=== PATIENT | male | born 1930 | race Caucasian/White ===

== ENCOUNTER → 2018-06-23 08:25 | Day surgery (SDC) | payer MEDICARE, BC ==
[~2018-06-23 08:25] MED LIST: Acetaminophen TAB* 325 MG PO PRN; Aspirin 81 mg CHEW TAB* 81 MG TAB.CHEW ONE; Diazepam TAB(*) 5 MG ONE; Heparin 2 UNITS/ML IVPREMIX* 2,000 ML IV ONE; Iodixanol 320 (CONTRAST) 100 ML SDV ONE; Iohexol 350 (CONTRAST) 200 ML MDV IV ONE; Lidocaine 1% INJ* 10 MG/ML 30 ML SDV ONE; Midazolam* 1 MG/ML 10 ML VIAL (10 MG) ONE; NS 0.9% 1000 ML* 1,000 ML IV SCH; fentaNYL* 50 MCG/ML 2 ML VIAL (100 MCG VIAL) ONE
[2018-06-23 14:51] VITALS: BP 152/65
--- NOTE | 2018-06-23 21:04 | CATH ---
CC: Pawel Grissom MD * CARDIAC CATHETERIZATION REPORT: DATE OF PROCEDURE: 06/23/18 - [facility] CATH PROCEDURE: Cardiac catheterization including coronary angiography, saphenous vein graft angiography and internal mammary angiography. INDICATION: Coronary artery disease, angina. HISTORY: The patient is an 88-year-old gentleman with a history of coronary artery disease, history of coronary bypass surgery in 2010. I had seen the patient for followup recently and he was reporting increasing chest pain and shortness of breath with exertion. The patient underwent an exercise Myoview stress test. During this exercise, he did have [address] segment depression. His Myoview images demonstrated lateral wall ischemia, it is different from 2016. Cardiac catheterization was recommended. DESCRIPTION OF PROCEDURE: The patient was brought to the cardiac catheterization lab in a fasting state. Informed consent had been obtained prior to the procedure. All labs were reviewed. The patient was placed supine on the catheterization table. Both femoral areas were cleaned and draped in usual fashion. 1% lidocaine was used for local anesthesia. The left femoral artery was entered by a modified Seldinger technique and a guide-wire was placed , over the guide-wire a 6-South African sheath introducer was placed. The patient underwent coronary angiography using a 6- [place] African JL4 catheter, a 6-South African AR1 catheter, and a 6-South African JOSE catheter. At the end of the procedure, all sheaths and catheters were removed. The patient tolerated the procedure well with no complications. A total of 95 cc of Visipaque dye was used. A total of 5.4 minutes of fluoro time was used. FINDINGS: 1. Left main artery: The left main was short. The left main was heavily calcified. The LAD was occluded at its ostium. The distal left main into the left circumflex artery had an eccentric 95% stenosis. 2. LAD: The LAD was occluded in its ostial portion. 3. Left circumflex artery: The circumflex artery was normal in size. It was a co- dominant vessel, giving off 2 obtuse marginal branches and PDA. The ostial portion of the left circumflex artery was heavily calcified with an eccentric 95% stenosis. The remainder of the vessel was without disease. 4. Right coronary artery: The RCA was a small co-dominant vessel. It was occluded in its mid portion. 5. Saphenous vein graft to the PDA: Saphenous vein graft was open and patent. The anastomoses to the PDA was normal. The PDA itself was without disease. 6. Saphenous vein graft to OM1 was flush occluded at the aorta. 7. MINER to the LAD. The MINER to the LAD was open and patent. The anastomosis to the LAD was stable. There was retrograde filling to the ostium of the LAD without evidence of stenosis. IMPRESSION: 1. Ostial stenosis of the left circumflex artery with a 95% stenosis and heavy calcification. The remainder of the vessel was without disease. 2. Saphenous vein graft to the RCA and MINER to the LAD are open and patent. 3. Saphenous vein graft to OM1 is occluded. RECOMMENDATION: The patient has no rest symptoms, his symptoms were all with exertion. The patient is unable to take beta-blockers because of his resting bradycardia. The lesion to the left circumflex artery is a high complex lesion with heavy calcification. At this point, recommendation is to observe symptoms and maximize medical therapy. I will see the patient and followup. The patient may benefit from angioplasty and stenting that was proximal left circumflex artery, which would likely be best accomplished with Rotablator therapy. [id number]/CPS #: [id number] [facility]
== END | disposition home or self-care (01) ==
LOC: CHICATH 08:25
PROVIDERS: ATTEND Specialist
DX: I25.10 Atherosclerotic heart disease of native coronary artery without angina pectoris (principal); I25.84 Coronary atherosclerosis due to calcified coronary lesion; R07.9 Chest pain, unspecified; R94.31 Abnormal electrocardiogram [ECG] [EKG]; I45.10 Unspecified right bundle-branch block; Z95.1 Presence of aortocoronary bypass graft; Z79.01 Long term (current) use of anticoagulants
CPT/HCPCS: 93455; 99156; 99157; A9270-GY; C1760; C1887; J1644; J2250; J3010

== ENCOUNTER 2018-12-20 15:16 | Emergency (ER) | payer MEDICARE, BC ==
[2018-12-20 15:29] VITALS: BP 172/65
--- NOTE | 2018-12-20 15:39 | UC ---
Abdominal Pain Male HPI - HPI Summary HPI Summary: acute abdomen pain and vomiting sudden onset for the past 2-4 hours - History of Current Complaint Chief Complaint: UCAbdominalPain Stated Complaint: ABDOMINAL PAIN, AND VOMITING Time Seen by Provider: 12/20/18 15:22 Hx Obtained From: Patient Onset/Duration: Sudden Onset, Lasting Hours Timing: Constant Pain Intensity: 6 Pain Scale Used: 0-10 Numeric Location: Diffuse Radiates: No Character: Cramping Aggravating Factor(s): Nothing Alleviating Factor(s): Nothing Associated Signs And Symptoms: Positive: Decreased Appetite, Nausea, Vomiting - Allergies/Home Medications Allergies/Adverse Reactions: Allergies Allergy/AdvReac Type Severity Reaction Status Date / Time No Known Allergies Allergy Verified 12/20/18 15:29 PMH/Surg Hx/FS Hx/Imm Hx Previously Healthy: No Endocrine History: Dyslipidemia Cardiovascular History: Hypertension, Other Other Cardiovascular History: cabg Other History Of: Negative For: Anticoagulant Therapy - Surgical History Surgical History: Yes Surgery Procedure, Year, and Place: TRIPLE BYPASS, 2010, [facility]. [facility] , KIDNEY and cardiac STENT - Family History Known Family History: Positive: Unknown - Social History Occupation: Retired Lives: With Family Alcohol Use: None Alcohol Amount: glass of wine 3x's week with dinner Substance Use Type: None Smoking Status (MU): Never Smoked Tobacco Have You Smoked in the Last Year: No - Immunization History Most Recent Influenza Vaccination: fall 2014 Most Recent Tetanus Shot: w/i 10 years Most Recent Pneumonia Vaccination: 11/16/2014 Review of Systems All Other Systems Reviewed And Are Negative: Yes Constitutional: Positive: Fatigue Skin: Positive: Negative Eyes: Positive: Negative ENT: Positive: Negative Respiratory: Positive: Negative Cardiovascular: Positive: Negative Gastrointestinal: Positive: Abdominal Pain, Nausea Genitourinary: Positive: Negative Motor: Positive: Negative Neurovascular: Positive: Negative Musculoskeletal: Positive: Negative Neurological: Positive: Negative Psychological: Positive: Negative Is Patient Immunocompromised?: No Physical Exam Triage Information Reviewed: Yes Appearance: Well-Nourished, Ill-Appearing - mild, Pain Distress - mild Vital Signs: Initial Vital Signs Temp 100.0 F 12/20/18 15:22 Pulse 74 12/20/18 15:22 Resp 16 12/20/18 15:22 BP 172/65 12/20/18 15:22 Pulse Ox 92 07/21/19 15:22 Vital Signs Reviewed: Yes Eye Exam: Normal Eyes: Positive: Conjunctiva Clear ENT Exam: Normal ENT: Positive: Normal ENT inspection, Hearing grossly normal. Negative: Trismus , Muffled voice, Hoarse voice Dental Exam: Normal Neck exam: Normal Neck: Positive: Supple, Nontender, No Lymphadenopathy Respiratory Exam: Normal Respiratory: Positive: Chest non-tender, Lungs clear, Normal breath sounds, No respiratory distress, No accessory muscle use Cardiovascular Exam: Normal Cardiovascular: Positive: RRR, No Murmur, Pulses Normal, Brisk Capillary Refill Abdomen Description: Positive: No Organomegaly, Soft, Other: - periumbillical diffuse tenderness. Negative: Nontender, CVA Tenderness (R), CVA Tenderness (L) , Guarding Bowel Sounds: Positive: Present Musculoskeletal Exam: Normal Musculoskeletal: Positive: Strength Intact, ROM Intact, No Edema Neurological Exam: Normal Neurological: Positive: Alert, Muscle Tone Normal Psychological Exam: Normal Skin Exam: Normal Abd Pain Male Course/Dx - Course Course Of Treatment: NPO, iv, to ED by EMS - Differential Dx/Clinical Impression Provider Diagnosis: Acute abdominal pain - Physician Notification/Consults Time Discussed With Above Provider: 15:40 - Mora Eleazar Discharge - Sign-Out/Discharge Documenting (check all that apply): Patient Departure All imaging exams completed and their final reports reviewed: No Studies - Discharge Plan Condition: Fair Disposition: TRANS HIGHER LVL OF CARE FAC Referrals: No Primary Care Phys,NOPCP [Primary Care Provider] - - Billing Disposition and Condition Condition: FAIR Disposition: Trans Higher Lvl of Care Fac - Attestation Statements Provider Attestation: Per institutional requirements, I have reviewed the chart, however, I was not consulted specifically or made aware of this patient by the midlevel provider. I did not personally evaluate, interact with , or disposition this patient.
== END 2018-12-20 15:58 | disposition short-term general hospital (02) ==
LOC: UCEAST 15:16
DX: R10.9 Unspecified abdominal pain (principal); R11.2 Nausea with vomiting, unspecified; E78.5 Hyperlipidemia, unspecified; I10 Essential (primary) hypertension; Z95.1 Presence of aortocoronary bypass graft
CPT/HCPCS: 81002; 99213; G0463

== ENCOUNTER 2018-12-20 16:22 | Inpatient (IN) | payer MEDICARE, BC ==
[2018-12-20] MEDS ORDERED: NS 0.9% 1000 ML** 1,000 ML IV ONE (17:39)
[2018-12-20] MEDS ORDERED: Morphine 4 MG/ML VIAL (1 ml) 4 MG/ML VIAL IV ONE (17:39)
[2018-12-20] MEDS ORDERED: Ondansetron INJ* 2 MG/ML VIAL IV ONE (17:39)
[2018-12-20 18:06] LABS: ABS Lymphocytes 0.4 10^3/ul (1.0-4.8); ABS Monocytes 0.7 10^3/ul (0-0.8); Eosinophil % 0.2 %; Hematocrit 38 % (42-52); Hemoglobin 12.8 g/dL (14.0-18.0); Lymphocyte % 3.8 %; Mean Corpuscular HGB Conc 33 g/dL (31-36); Mean Corpuscular Hemoglobin 31 pg (27-31); Mean Corpuscular Volume 93 fL (80-94); Mean Platelet Volume 10.5 fL (7.4-10.4); Platelet Count 108 10^3/uL (150-450); Red Blood Count 4.11 10^6 /uL (4.18-5.48); Red Cell Distribution Width 13 % (10-15); White Blood Count 11.2 10^3/uL (3.5-10.8)
--- NOTE | 2018-12-20 18:08 | ED ---
Abdominal Pain/Male - HPI Summary HPI Summary: This patient is an 88 year old MF sent to ED from via EMS with a chief complaint of R/L upper abdominal pain since 0900 this morning. The CC is described as throbbing. Last bowel movement was 1300 today. He has not been passing gas. The patient rates the pain 6/10 in severity. Symptoms aggravated by nothing. Symptoms alleviated by nothing. Patient reports vomiting x4. Patient denies fever, CP, SOB. - History of Current Complaint Chief Complaint: EDAbdPain Stated Complaint: "ABDOMINAL PAIN PER EMS COMING FROM [facility]" Time Seen by Provider: 12/20/18 16:55 Hx Obtained From: Patient Onset/Duration: Gradual Onset, Lasting Hours - Since 0900 this morning, Still Present, Worse Since Timing: Constant Severity Initially: Moderate Severity Currently: Moderate Pain Intensity: 6 Pain Scale Used: 0-10 Numeric Location: Discrete At: RUQ, Discrete At: RLQ Character: Other: - Throbbing Aggravating Factor(s): Nothing Alleviating Factor(s): Nothing Associated Signs And Symptoms: Positive: Negative - SOB, Vomiting. Negative: Fever, Chest Pain - Allergies/Home Medications Allergies/Adverse Reactions: Allergies Allergy/AdvReac Type Severity Reaction Status Date / Time No Known Allergies Allergy Verified 12/20/18 15:29 PMH/Surg Hx/FS Hx/Imm Hx Endocrine/Hematology History: Denies: Hx Anticoagulant Therapy, Hx Blood Disorders, Hx Blood Transfusions, Hx Bone Marrow Disease, Hx Diabetes, Hx Systemic Lupus Erythematosus, Hx Sickle Cell Disease, Hx Thyroid Disease, Hx Anemia, Hx Unexplained Bleeding, Other Endocrine/Hematological Disorders Cardiovascular History: Reports: Hx Coronary Artery Disease, Hx Hypertension, Other Cardiovascular Problems/Disorders - CAD Denies: Hx Aneurysm, Hx Angina, Hx Angioplasty, Hx Auto Implanted Cardiovert Defib, Hx Cardiac Arrest, Hx Cardiomegaly, Hx Congenital Heart Disease, Hx Congestive Heart Failure, Hx Deep Vein Thrombosis, Hx Embolism, Hx Hypercholesterolemia, Hx Hypotension, Hx Pacemaker/ICD, Hx Peripheral Vascular Disease, Hx Rheumatic Fever, Hx Syncope, Hx Valvular Heart Disease Respiratory History: Reports: Other Respiratory Problems/Disorders - LOW O2 Denies: Hx Asthma, Hx Chronic Bronchitis, Hx Chronic Obstructive Pulmonary Disease (COPD), Hx Cystic Fibrosis, Hx Lung Cancer, Hx Pleural Effusion, Hx Pneumonia, Hx Pulmonary Edema, Hx Pulmonary Embolism, Hx Seasonal Allergies, Hx Sleep Apnea GI History: Denies: Hx Hiatal Hernia, Hx Irritable Bowel, Hx Jaundice, Hx Obstructive Bowel, Hx Ileostomy, Hx Pyloric Stenosis, Hx Ulcer, Other GI Disorders History: Denies: Hx Acute Renal Failure, Hx Benign Prostatic Hyperplasia, Hx Chronic Renal Failure, Hx Dialysis, Hx Kidney Infection, Hx Kidney Stones, Other Problems/Disorders Musculoskeletal History: Reports: Hx Arthritis - KNEES, HANDS Denies: Hx Back Problems, Hx Bursitis, Hx Congenital Bone Abnormalities, Hx Fibromyalgia, Hx Gout, Hx Orthopedic Injury, Hx Osteoporosis, Hx Scoliosis, Hx Tendonitis, Other Musculoskeletal History Sensory History: Reports: Hx Contacts or Glasses, Hx Vision Problem, Hx Hearing Aid - not with him, Hx Hearing Problem Denies: Hx Cataracts, Hx Eye Injury, Hx Eye Prosthesis, Hx Glaucoma, Hx Legally Blind, Hx Macular Degeneration, Hx Deafness, Other Sensory Impairments Opthamlomology History: Reports: Hx Contacts or Glasses, Hx Vision Problem Denies: Hx Cataracts, Hx Eye Injury, Hx Eye Prosthesis, Hx Glaucoma, Hx Legally Blind, Hx Macular Degeneration, Other Sensory Impairments Neurological History: Denies: Hx Dementia, Hx Developmental Delay, Hx Headaches, Hx Migraine, Hx Nerve Disease, Hx Seizures, Hx Spinal Cord Injury, Hx Transient Ischemic Attacks (TIA), Other Neuro Impairments/Disorders Psychiatric History: Denies: Hx Anxiety, Hx Attention Deficit Hyperactivity Disorder, Hx Eating Disorder, Hx Depression, Hx Panic Disorder, Hx Post Traumatic Stress Disorder, Hx Inpatient Treatment, Hx Community Mental Health Tx, Hx Schizophrenia, Hx Bipolar Disorder, Hx Suicide Attempt, Hx of Violent Episodes Against Others, Hx Substance Abuse, Other Psychiatric Issues/Disorders - Cancer History Cancer Type, Location and Year: melanoma cheek and leg Hx Chemotherapy: No Hx Radiation Therapy: No Hx Palliative Cancer Treatment: No - Surgical History Surgery Procedure, Year, and Place: TRIPLE BYPASS, 2010, [facility] , KIDNEY and cardiac STENT Hx Anesthesia Reactions: No Infectious Disease History: No Infectious Disease History: Denies: Hx Clostridium Difficile, Hx Hepatitis, Hx Human Immunodeficiency Virus (HIV), Hx of Known/Suspected MRSA, Hx Shingles, Hx Tuberculosis, Hx Known/ Suspected VRE, Hx Known/Suspected VRSA, History Other Infectious Disease, Traveled Outside the [place] in Last 30 Days - Family History Known Family History: Positive: Non-Contributory - Social History Alcohol Use: None Alcohol Amount: glass of wine 3x's week with dinner Hx Substance Use: No Substance Use Type: Reports: None Hx Tobacco Use: No Smoking Status (MU): Never Smoked Tobacco Have You Smoked in the Last Year: No Review of Systems Negative: Fever Negative: Chest Pain Negative: Shortness Of Breath Positive: Abdominal Pain, Vomiting All Other Systems Reviewed And Are Negative: Yes Physical Exam - Summary Physical Exam Summary: GENERAL: Patient is a well-developed and nourished M who is lying comfortable in the stretcher. Patient is not in any acute respiratory distress. HEAD AND FACE: Normocephalic EYES: PERRLA, EOMI x 2. EARS: Hearing grossly intact. MOUTH: Oropharynx within normal limits. NECK: Supple, trachea is midline, no adenopathy, no JVD, no carotid bruit. CHEST: Symmetric, no tenderness at palpation LUNGS: Clear to auscultation bilaterally. No wheezing or crackles. CVS: Regular rate and rhythm, S1 and S2 present, no murmurs or gallops appreciated. ABDOMEN: Soft, non-tender. Bowel sounds are normal. No abnormal abdominal pulsations. EXTREMITIES: Full ROM in all major joints, no edema, no cyanosis or clubbing. NEURO: Alert and oriented x 3. No acute neurological deficits. Speech is normal and follows commands. SKIN: Dry and warm Triage Information Reviewed: Yes Vital Signs On Initial Exam: Initial Vitals Temp Pulse Resp BP Pulse Ox 98.5 F 69 18 180/68 92 12/20/18 16:30 12/20/18 16:30 12/20/18 16:30 12/20/18 16:30 12/20/18 16:30 Vital Signs Reviewed: Yes Diagnostics - Vital Signs Vital Signs Temp Pulse Resp BP Pulse Ox 12/20/18 17:52 20 12/20/18 16:30 98.5 F 68 21 180/68 91 - Laboratory Result Diagrams: 12/21/18 04:41 12/21/18 04:41 Lab Statement: Any lab studies that have been ordered have been reviewed, and results considered in the medical decision making process. - CT A/P CT Interpretation Completed By: Radiologist Summary of CT Findings: 1. Findings of acute cholecystitis. 2. Bosniak type I renal cysts. No followup indicated. 3. Distal colonic diverticulosis. 4. Severe prostatomegaly. Dr. Hatfield has reviewed this radiology report. - EKG 175 Cardiac Rate: NL - 64 BPM EKG Rhythm: Sinus Rhythm Ectopy: PACs EKG Comparison: No Significant Change - Similar to EKG 05/2016 Summary of EKG Findings: NSR 64 BPM, PACs, RBBB, similar to EKG done in 05/2016. 1810 Cardiac Rate: NL - 68 BPM EKG Rhythm: Sinus Rhythm EKG Comparison: Other - Now has ST depression compared to EKG taken earlier today, but these are present in an EKG taken 05/18/19. Summary of EKG Findings: NSR at 68 BPM, RBBB, ST depressions in lateral leads, PACs. The ST depressions are noted in an EKG taken 05/18/2016. Re-Evaluation - Re-Evaluation First Eval Re-Evaluation Time: 20:17 Comment: Discussed results with patient. Patient will be admitted to [facility]. Patient udnerstands and agrees with this plan. Abdominal Pain Male Course/Dx - Course Course Of Treatment: This patient is an 88 year old MF sent to ED from via EMS with a chief complaint of R/L upper abdominal pain since 0900 this morning. EKG taken 1750 revealed NSR 64 BPM, PACs, RBBB, similar to EKG done in 05/2016. EKG at 181 revealed NSR at 68 BPM, RBBB, ST depressions in lateral leads.NSR at 68 BPM, RBBB, ST depressions in lateral leads, PACs. The ST depressions are noted in an EKG taken 05/18/2016. In the ED course, patient received morphine, fluids, and Zofran and Zosyn bag. Blood work obtained. CT A/P revealed 1. Findings of acute cholecystitis. 2. Bosniak type I renal cysts. No followup indicated. 3. Distal colonic diverticulosis. 4. Severe prostatomegaly. Discussed patient case with Dr. Nayana Mendenhall, surgeon, who stated the patient should be admitted to [facility] before surgery for the cholecystitis. At 2029, discussed patient case with Dr. Vega, who accepted patient for admission to [facility]. I discussed results with patient. The patient agrees with this plan. Patient will be admitted with dx of cholecystitis. - Diagnoses Provider Diagnoses: Cholecystitis - Provider Notifications Discussed Care Of Patient With: Nayana Mendenhall Time Discussed With Above Provider: 20:27 Instructed by Provider To: Other - Discussed patient case with Dr. Nayana Mendenhall, surgeon, who stated the patient should be admitted to [facility] before surgery for the cholecystitis. At 2030, discussed patient case with Dr. Vega, who accepted patient for admission to [facility]. Discharge - Sign-Out/Discharge Documenting (check all that apply): Patient Departure - Admit Patient Received Moderate/Deep Sedation with Procedure: No - Discharge Plan Condition: Stable Disposition: ADMITTED TO [facility] - Billing Disposition and Condition Condition: STABLE Disposition: Admitted to [facility] - Attestation Statements Document Initiated by Scribe: Yes Documenting Scribe: Hank Pearson Provider For Whom Scribe is Documenting (Include Credential): Mark Hatifeld MD Scribe Attestation: IHank, scribed for Mark Hatfield MD on 12/22/18 at 0758. Scribe Documentation Reviewed: Yes Provider Attestation: The documentation as recorded by the moeibeHank accurately reflects the service I personally performed and the decisions made by me, Mark Hatfield MD Status of Scribe Document: Viewed
[2018-12-20 18:15] LABS: Activated Partial Thrombo Time 29.7 seconds (26.0-38.0); INR 1.49 (0.82-1.09)
[2018-12-20 18:25] LABS: Albumin 3.5 g/dL (3.2-5.2); Albumin/Globulin Ratio 1.1 (1-3); C Reactive Protein 197.66 mg/L (<8.01); Calcium 9.1 mg/dL (8.6-10.3); EGFR African American 60.4 (>60); EGFR Non-African American 49.9 (>60); Globulin 3.2 g/dL (2-4); Magnesium 2.1 mg/dL (1.9-2.7); Total Bilirubin 0.9 mg/dL (0.2-1.0); Total Protein 6.7 g/dL (6.4-8.9)
[2018-12-20 18:26] LABS: Troponin I 0.01 ng/mL (<0.04)
[2018-12-20] MEDS ORDERED: Iodixanol* (CONTRAST) 320 MG/ML 100 ML SDV IV ONE (18:30)
[2018-12-20] MEDS ORDERED: Piperacillin/Tazobac ADVAN(*) 3.375 GM in NS 0.9% 100 ML* 100 ML IVPB ONE (20:34)
[2018-12-20 20:55] LABS: Urine Appearance Clear; Urine Bacteria Absent (Absent); Urine Bilirubin Negative (Negative); Urine Blood Negative (Negative); Urine Color Yellow; Urine Glucose Negative (Negative); Urine Ketones 1+ (Negative); Urine Nitrite Negative (Negative); Urine Protein 1+(30 mg/dL) (Negative); Urine Red Blood Cell 2+(6-10/hpf) (Absent); Urine Specific Gravity 1.042 (1.010-1.030); Urine Squamous Epithelial Cell Present (Absent); Urine Urobilinogen Negative (Negative); Urine White Blood Cell Trace(0-5/hpf) (Absent)
--- NOTE | 2018-12-20 21:23 | HP ---
History of Present Illness - History of Present Illness Reason for Visit: Vomiting and abdominal pain History of Present Illness: Mr. Whitlock is an 88-year-old gentleman with CAD s/p CABG/stent, here due to vomiting and abdominal pain. Patient stated he started having vomiting 1PM after he had hamburger. Total 4 times of vomiting didn't notice any blood, but vomiting just had the hamburger which was red as it was medium rare. This vomiting was accompanied by abdominal discomfort and he couldn't rest so went to urgent care who sent him to the ER. Discomfort felt like someone punched him it was localized to the bilateral upper abdomen and was constant without any alleviating or aggravating factor. No fever. No diarrhea or constipation. Had two BM today which were normal. No chest pain, no shortness of breath no palpitation. PAST MEDICAL HISTORY: Hypertension Coronary artery disease s/p CABG and stent Hyperlipidemia History of skin cancer. Atrial Fibrillation on eliquis. Uses Hearing Aid - currently not with him Gout had an attack last Friday PAST SURGICAL HISTORY: CABG triple vessel 2011 at [facility] Cardiac stent Kidney stent unsure if it was urinary or vascular stent done at [place] Melanoma excision Tonsillectomy Right Knee replacement FAMILY HISTORY: Non-contributory at his age. SOCIAL HISTORY: He lives with his . He does not smoke or use drugs. Drinks occasional alcohol. Allergies Allergy/AdvReac Type Severity Reaction Status Date / Time No Known Allergies Allergy Verified 12/20/18 15:29 Review of Systems - Measurements Intake and Output: Intake and Output Last 24 Hours 12/18/18 12/19/18 12/20/18 12/21/18 06:59 06:59 06:59 06:59 Weight 166 lb - Review of Systems Constitutional Symptoms: Negative: Fever Eyes: Negative: Change in Vision Pulmonary: Negative: Cough, Sputum, Shortness of Breath Cardiology: Negative: Chest Pain, Shortness of Breath Gastroenterology: Positive: Abdominal Pain, Nausea, Vomiting Objective Vital Signs - 8 hr 12/20/18 12/20/18 12/20/18 16:30 17:00 17:30 Temperature 98.5 F Pulse Rate 68 72 70 Respiratory 21 27 20 Rate Blood Pressure 180/68 156/57 172/62 (mmHg) O2 Sat by Pulse 91 89 91 Oximetry 12/20/18 12/20/18 12/20/18 17:52 18:00 18:17 Temperature Pulse Rate 74 65 Respiratory 20 23 20 Rate Blood Pressure 171/55 (mmHg) O2 Sat by Pulse 82 98 Oximetry 12/20/18 12/20/18 12/20/18 18:30 19:00 19:27 Temperature Pulse Rate 68 76 72 Respiratory 22 25 22 Rate Blood Pressure 169/67 155/66 (mmHg) O2 Sat by Pulse 98 98 98 Oximetry 12/20/18 12/20/18 19:30 20:00 Temperature Pulse Rate 75 74 Respiratory 22 22 Rate Blood Pressure 185/61 172/59 (mmHg) O2 Sat by Pulse 98 98 Oximetry Oxygen Devices in Use Now: Nasal Cannula - on 1LNC Eyes: No Scleral Icterus, PERRLA Ears/Nose/Mouth/Throat: NL Teeth, Lips, Gums, Clear Oropharnyx, Mucous Membranes Moist Neck: NL Appearance and Movements; NL JVP, Trachea Midline Respiratory: Clear to Auscultation Cardiovascular: NL Sounds; No Murmurs; No JVD, RRR Abdominal: - - Abdomen is soft. Had morphine a while back so his tenderness is very minimal at this point. Bowel sounds in place. Couldn't appreciate any watson's sign. Result Diagrams: 12/20/18 17:56 12/20/18 17:56 Diagnostic Imaging: CT Abdomen Pelvis IMPRESSION: 1. Findings of acute cholecystitis. 2. Bosniak type I renal cysts. No followup indicated. 3. Distal colonic diverticulosis. 4. Severe prostatomegaly. EKG Data: EKG shows sinus at 68bpm, RBBB with T-wave inversions. Compared to old EKG from 2016 no significant change. Assess/Plan/Problems-Billing Assessment: 88yoM with PMHx of CAD s/p CABG here due to vomiting and abdominal pain likely due to acute cholecystitis. - Patient Problems (1) Acute cholecystitis Current Visit: Yes Status: Acute Code(s): K81.0 - ACUTE CHOLECYSTITIS SNOMED Code(s): 53829408 Comment: Started on IVF Zosyn IV. Surgeon consulted by ER will see him in AM. Continue NPO. Analgesics/Anti-emetics. Consider ECHO in AM for checking on cardiac status. (2) History of atrial fibrillation Current Visit: Yes Status: Acute Code(s): Z86.79 - PERSONAL HISTORY OF OTHER DISEASES OF THE CIRCULATORY SYSTEM SNOMED Code(s): 714254779 Comment: Not in A. Fib at this time. Possible surgery so will hold aspirin and eliquis for now. Monitor of tele. Once decision is made by surgeon regarding cholecystectomy consider restarting eliquis. (3) Hypoxemia Current Visit: Yes Status: Acute Code(s): R09.02 - HYPOXEMIA SNOMED Code(s ): 696554653 Comment: Likely underlying FANNY as only happens when he sleeps. Monitor pulse ox and nasal cannula O2. (4) CKD (chronic kidney disease) stage 3, GFR 30-59 ml/min Current Visit: Yes Status: Acute Code(s): N18.3 - CHRONIC KIDNEY DISEASE, STAGE 3 (MODERATE) SNOMED Code(s): 883375589 Comment: Creatinine similar to previous. Monitor creatinine. (5) CAD (coronary artery disease) Current Visit: No Status: Chronic Priority: Medium Code(s): I25.10 - ATHSCL HEART DISEASE OF [place] CORONARY ARTERY W/O ANG PCTRS SNOMED Code(s): 24664351 Comment: Stable. Hold Aspirin, statin given acute chitra. (6) Dyslipidemia Current Visit: No Status: Chronic Priority: Medium Code(s): E78.5 - HYPERLIPIDEMIA, UNSPECIFIED SNOMED Code(s): 176995529 Comment: Hold Statin for now. (7) HTN (hypertension) Current Visit: No Status: Chronic Priority: Medium Code(s): I10 - ESSENTIAL (PRIMARY) HYPERTENSION SNOMED Code(s): 50698915 Comment: Normotensive. Continue ramipril. (8) Full code status Current Visit: No Status: Acute Priority: High Code(s): Z78.9 - OTHER SPECIFIED HEALTH STATUS SNOMED Code(s): 651182577 Comment: Discussed code status omarl wants full code. is the HCP in case patient unable to do any decisions. (9) DVT prophylaxis Current Visit: No Status: Acute Priority: Medium Code(s): IAV3162 - SNOMED Code(s): 578348597 Comment: SCDs for now. Once decision is made by surgeon regarding cholecystectomy consider restarting eliquis.
[2018-12-20] MEDS ORDERED: Morphine INJ* 2 MG/ML 1 ML SYRINGE (TWO MG - NEW SYRINGE VERSION) IV PRN (22:18)
[2018-12-20] MEDS ORDERED: Zolpidem TAB* 5 MG PO PRN (22:18)
[2018-12-20] MEDS ORDERED: Zosyn per Pharmacy* NOTE FOLLOW UP PRN (23:36)
[2018-12-21] MEDS: NS 0.9% 1000 ML** 1,000 ML IV SCH ×2 (00:47→17:04)
[2018-12-21 00:55] LABS: Troponin I 0.06 ng/mL (<0.04)
[2018-12-21] MEDS ORDERED: Acetaminophen TAB* 325 MG PO PRN (01:12)
[2018-12-21] MEDS: ZOSYN 3.375 GM Q8H per EXTENDED INFUSION IVPB SCH ×6 (02:09→18:01)
[2018-12-21 05:11] LABS: ABS Lymphocytes 0.4 10^3/ul (1.0-4.8); ABS Monocytes 1.3 10^3/ul (0-0.8); ABS Neutrophils 14.1 10^3/ul (1.5-7.7); Hematocrit 40 % (42-52); Hemoglobin 13.7 g/dL (14.0-18.0); Lymphocyte % 2.7 %; Mean Corpuscular HGB Conc 34 g/dL (31-36); Mean Corpuscular Hemoglobin 32 pg (27-31); Mean Corpuscular Volume 93 fL (80-94); Mean Platelet Volume 10.1 fL (7.4-10.4); Platelet Count 117 10^3/uL (150-450); Red Blood Count 4.33 10^6 /uL (4.18-5.48); Red Cell Distribution Width 13 % (10-15); White Blood Count 15.8 10^3/uL (3.5-10.8)
[2018-12-21 05:29] LABS: BUN/Creatinine Ratio 19.4 (8-20); Calcium 8.9 mg/dL (8.6-10.3); EGFR African American 60.9 (>60); EGFR Non-African American 50.3 (>60); Globulin 3.1 g/dL (2-4); Total Bilirubin 1.7 mg/dL (0.2-1.0); Total Protein 6.1 g/dL (6.4-8.9)
[2018-12-21 05:40] LABS: Troponin I 0.08 ng/mL (<0.04)
[2018-12-21 08:57] LABS: Troponin I 0.08 ng/mL (<0.04)
[2018-12-21] MEDS: Ramipril CAP* 5 MG PO SCH (11:10)
[2018-12-21] MEDS: Multivitamins/Minerals TAB PO SCH (11:10)
[2018-12-21] MEDS: Isosorbide Mononitrate ER TAB* 30 MG PO SCH ×2 (11:10→20:44)
--- NOTE | 2018-12-21 12:44 | CONS ---
CONSULTATION REPORT: DATE OF CONSULTATION: 12/21/18 SERVICE: General Surgery. ATTENDING SURGEON: Nayana Mendenhall MD. REASON FOR CONSULTATION: Abdominal pain and acute cholecystitis. HISTORY OF PRESENT ILLNESS: Mr. Whitlock is a very pleasant 88-year-old gentleman with a history of coronary artery disease, status post CABG and stents, atrial fibrillation, on Eliquis, hypertension, and hyperlipidemia, who presented to the emergency room with complaints of 1-day of emesis and right upper quadrant abdominal pain after eating a hamburger. He says that this is his first time ever having this type of abdominal pain. Given that the pain progressed, he came to the emergency room where he was found on CT scan to have findings consistent with acute cholecystitis. He was therefore admitted to the medical service yesterday. Today, the patient says that his pain has improved. He had more severe right upper quadrant pain yesterday; however, he did have a fever overnight. Of note, he last took his Eliquis Friday morning at approximately 9 a.m. PAST MEDICAL HISTORY: 1. Hypertension. 2. Coronary artery disease. 3. Hyperlipidemia. 4. Atrial fibrillation. PAST SURGICAL HISTORY: 1. CABG. 2. Cardiac stents. 3. An abdominal stent that he is not sure if it was a urinary stent or not. 4. Tonsillectomy. 5. Right knee replacement. 6. Melanoma excision. MEDICATIONS: 1. Isosorbide mononitrate. 2. Multivitamins. 3. Ramipril. 4. Zolpidem as needed for insomnia. 5. Eliquis. ALLERGIES: No known drug allergies. FAMILY HISTORY: Noncontributory. SOCIAL HISTORY: The patient is a nonsmoker. Lives at home with his . He is very active. He goes to the [employer] 3 times a week and gardens regularly. REVIEW OF SYSTEMS: Negative, except for fever, abdominal pain, and emesis. PHYSICAL EXAM: Vital Signs: T-max is 101 at 2:58 a.m., T-current is 98.9, pulse is 85, respiratory rate is 20, O2 sat is 95% O2 on room air, blood pressure is 139/61. General: He is a well-appearing elderly male, lying comfortably in bed, in no apparent distress, conversing easily. HEENT: Normocephalic, atraumatic. Cardiovascular: Regular rate and rhythm. Respiratory: Clear to auscultation bilaterally. Abdomen: Soft, with focal tenderness in the right upper quadrant, nontender at the other remaining quadrants. Extremities: No edema. DIAGNOSTIC STUDIES/LAB DATA: Labs from 12/21/18, white blood cell count 15.8, hemoglobin 13.7, hematocrit 40, platelets are 117. Sodium is 137, potassium is 5, chloride is 105, CO2 is 24. Creatinine is 1.34. Glucose is 125. Total bilirubin is 1.7. AST is 38, ALT is 41, alkaline phosphatase is 228. Troponin is 0.08. CT abdomen and pelvis on 12/20/18, shows findings of acute cholecystitis, distal colonic diverticulosis, severe prostatomegaly. The gallbladder is distended with multiple calcified, gas-containing gallstones, subtle pericholecystic fluid, and gallbladder wall thickening. ASSESSMENT AND PLAN: Mr. Whitlock is an 88-year-old gentleman with a history of coronary artery disease, hypertension, atrial fibrillation, on Eliquis, who presents with right upper quadrant abdominal pain for 1 day and findings consistent with acute cholecystitis. He last took an Eliquis yesterday morning at 9 a.m and is only mildly tender. Although he had a fever overnight and his white count has increased slightly, we will plan to take him to the OR tomorrow for a laparoscopic cholecystectomy to diminish the risk of bleeding. Today, he should continue to be NPO and continue antibiotics. His troponins were slightly elevated. His rotary screen printing machine operator is Dr. Phan and a consult will be requested for cardiac risk stratification optimization. I explained to him and his that the surgery would be a laparoscopic cholecystectomy and I explained the risks, benefits, and alternatives to the procedure and they wished to proceed. The risks includes, but not limited to bleeding, infection, injury to nearby structures including the intestine, stomach, injury to common bile duct, which may require reoperation or further procedures in the future. The surgery will be tomorrow morning with Dr. Grimes. [id number]/[facility] #: [id number] MTDPrasad
[2018-12-21] MEDS ORDERED: Buffered Lidocaine 1% SYRIN* 1 ML/SYRINGE INTRADERM ONE (12:53)
--- NOTE | 2018-12-21 17:24 | PN ---
<Roxanne Jon - Last Filed: 12/21/18 17:19> Subjective Date of Service: 12/21/18 Interval History: 88 y/o M with PMH of HTN, CAD(s/p stent and CABG), HLD, AF,CKD presented with complain of upper abdominal pain for 1 day and 4 episodes of vomiting but no fever, yellowish discoloration and SOB. Admitted with diagnosis of Acute Cholecystitis with Cholelithiasis( seen in CT). Patient doesnot have any complain now. He is on clear liquid diet till midnight. Planned for cholecystectomy tomorrow after cardio clearance as his Troponin was 0.08 and for risk stratification. Objective Active Medications: Acetaminophen (Tylenol Tab*) 650 mg PO Q6H PRN PRN Reason: PAIN Last Admin: 12/21/18 03:10 Dose: 650 mg Sodium Chloride (Ns 0.9% 1000 Ml) 1,000 mls @ 75 mls/hr IV PER RATE [facility] Last Admin: 12/21/18 17:04 Dose: 75 mls/hr Piperacillin Sod/Tazobactam (Sod 3.375 gm/ Sodium Chloride) 100 mls @ 25 mls/ hr IVPB Q8H [facility] Last Admin: 12/21/18 10:29 Dose: 25 mls/hr Lactated Ringer's (Lactated Ringers 1000 Ml Bag*) 1,000 mls @ 125 mls/hr IV PER RATE [facility] Isosorbide Mononitrate (Imdur Er Tab*) 30 mg PO BID [facility] Last Admin: 12/21/18 11:10 Dose: Not Given Morphine Sulfate (Morphine Inj (Syringe))*) 2 mg IV Q4H PRN PRN Reason: PAIN - MILD Multivitamins/Minerals (Theragran/Minerals Tab*) 1 tab PO QAM [facility] Last Admin: 12/21/18 11:10 Dose: Not Given Pharmacy Consult (Zosyn Per Pharmacy*) 1 note FOLLOW UP . PRN PRN Reason: PER PROTOCOL Ramipril (Altace Cap*) 5 mg PO QAM [facility] Last Admin: 12/21/18 11:10 Dose: Not Given Zolpidem Tartrate (Ambien Tab*) 5 mg PO BEDTIME PRN PRN Reason: INSOMNIA Last Admin: 12/21/18 00:49 Dose: 5 mg Vital Signs - 8 hr 12/21/18 12/21/18 10:57 11:09 Temperature 98.7 F Pulse Rate 85 Respiratory 20 Rate Blood Pressure 113/33 (mmHg) O2 Sat by Pulse 95 91 Oximetry Oxygen Devices in Use Now: Nasal Cannula Exam: Patient is lying on a bed with nasal canula on his nares. GI: There is tenderness on RUQ with Iniguez sign positive. Bowel sound heard. CVS: Normal heart sound heard with no any murmur, rub or gallops. Respiratory: Normal vesicular sound heard. Neuro: Alert, conscious and oriented. Extremity: no any swelling. Result Diagrams: 12/21/18 04:41 12/21/18 04:41 Diagnostic Imaging: CT Abdomen Pelvis IMPRESSION: 1. Findings of acute cholecystitis. 2. Bosniak type I renal cysts. No followup indicated. 3. Distal colonic diverticulosis. 4. Severe prostatomegaly. EKG Data: EKG shows sinus at 68bpm, RBBB with T-wave inversions. Compared to old EKG from 2016 no significant change. Assess/Plan/Problems-Billing Assessment: 88 y/o M with PMH of CAD(s/p stent and CABG), AF, HTN, HLD, CKD presented with abdominal pain and vomiting. Admitted with diagnosis of Acute Cholecystitis with cholelithiasis. - Patient Problems (1) Cholecystitis, acute with cholelithiasis Current Visit: Yes Status: Acute Code(s): K80.00 - CALCULUS OF GALLBLADDER W ACUTE CHOLECYST W/O OBSTRUCTION SNOMED Code(s): 11178302 Comment: Started on piperacillin/tazobactum. Planned for surgery tomorrow. NPO from midnight. (2) CAD (coronary artery disease) Current Visit: No Status: Chronic Priority: Medium Code(s): I25.10 - ATHSCL HEART DISEASE OF [place] CORONARY ARTERY W/O ANG PCTRS SNOMED Code(s): 92777612 Comment: History of CAD. No any chest pain or SOB now. Hold Aspirin, statin given acute chitra. Cardiology consultation for risk stratification and surgery clearance. (3) Atrial fibrillation Current Visit: No Status: Acute Code(s): I48.91 - UNSPECIFIED ATRIAL FIBRILLATION SNOMED Code(s): 02924402 Comment: Eliquis put on hold for surgery. (4) HTN (hypertension) Current Visit: No Status: Chronic Priority: Medium Code(s): I10 - ESSENTIAL (PRIMARY) HYPERTENSION SNOMED Code(s): 66667632 Comment: Continue ramipril. (5) Chronic kidney disease (CKD) Current Visit: Yes Status: Acute Code(s): N18.9 - CHRONIC KIDNEY DISEASE, UNSPECIFIED SNOMED Code(s): 727723269 Comment: Creatinine is 1.34 and GFR is 50.3. (6) Dyslipidemia Current Visit: No Status: Chronic Priority: Medium Code(s): E78.5 - HYPERLIPIDEMIA, UNSPECIFIED SNOMED Code(s): 249610787 Comment: Hold Statin for now. (7) DVT prophylaxis Current Visit: No Status: Acute Priority: Medium Code(s): FFM4227 - SNOMED Code(s): 735440185 Comment: SCDs for now. Nitin put on hold for his surgery. Status and Disposition: Medicine inpatient. Attending: Estefania Gonzalez <Estefania Gonzalez - Last Filed: 12/22/18 21:30> Objective Active Medications: Acetaminophen (Tylenol Tab*) 650 mg PO Q6H PRN PRN Reason: PAIN Last Admin: 12/21/18 03:10 Dose: 650 mg Hydrocodone Bitart/Acetaminophen ([place] 5-325 Tab*) 1 tab PO Q4H PRN PRN Reason: PAIN MODERATE Sodium Chloride (Ns 0.9% 1000 Ml) 1,000 mls @ 75 mls/hr IV PER RATE [facility] Last Admin: 12/21/18 17:04 Dose: 75 mls/hr Piperacillin Sod/Tazobactam (Sod 3.375 gm/ Sodium Chloride) 100 mls @ 25 mls/ hr IVPB Q8H [facility] Last Admin: 12/22/18 19:49 Dose: 25 mls/hr Isosorbide Mononitrate (Imdur Er Tab*) 30 mg PO BID [facility] Last Admin: 12/22/18 21:11 Dose: 30 mg Morphine Sulfate (Morphine Inj (Syringe))*) 2 mg IV Q2H PRN PRN Reason: PAIN MODERATE Morphine Sulfate (Morphine 4 Mg/Ml Vial (1 Ml)) 4 mg IV Q2H PRN PRN Reason: PAIN SEVERE Multivitamins/Minerals (Theragran/Minerals Tab*) 1 tab PO QAM [facility] Last Admin: 12/22/18 10:54 Dose: Not Given Pharmacy Consult (Zosyn Per Pharmacy*) 1 note FOLLOW UP . PRN PRN Reason: PER PROTOCOL Ramipril (Altace Cap*) 5 mg PO QAM [facility] Last Admin: 12/22/18 10:54 Dose: Not Given Zolpidem Tartrate (Ambien Tab*) 5 mg PO BEDTIME PRN PRN Reason: INSOMNIA Last Admin: 12/21/18 00:49 Dose: 5 mg Vital Signs - 8 hr 12/22/18 12/22/18 12/22/18 15:20 16:00 19:17 Temperature 99.9 F 99.8 F Pulse Rate 87 82 Respiratory 18 17 Rate Blood Pressure 127/45 123/50 (mmHg) O2 Sat by Pulse 96 96 96 Oximetry 12/22/18 19:55 Temperature Pulse Rate Respiratory 17 Rate Blood Pressure (mmHg) O2 Sat by Pulse Oximetry Result Diagrams: 12/22/18 12:33 12/22/18 12:32 Assess/Plan/Problems-Billing Admitted overnight and started on IV Zosyn. tmax 101 elderly man in NAD, frequent throat clearing ( reports baseline) rrr no mgr ctab abd soft, +RUQ tenderness, no guarding, possible rebound no LE edema A/P 88M with CAD s/p CABG, HTN, afib on Eliquis, presents with acute abdominal pain and vomiting, found here with fever, leukocytosis, and imaging confirming acute cholecystitis. # Acute cholecystitis. - to OR tomorrow - appreciate surgery recommendations - cont IV Zosyn # Afib - can resume Eliquis 2 days after surgery if no concern for bleeding - was not on rate control # HTN - cont home ramipril, monitor BP # CAD - hold aspirin, continue statin Attestation Documenting Resident: Dontrell Supervising Physician: Carlos Attestation: This service has been performed in part by a resident under the direction of a teaching physician.Carlos Perea, performed the service, or was physically present during the critical, or [place] portions of the service, furnished by the resident. I participated in the management of the patient.
--- NOTE | 2018-12-21 20:12 | CONS ---
CC: Dr. Burrell of [facility]; Dr. Mendenhall for [facility] * CARDIOLOGY CONSULTATION: DATE OF CONSULT: 12/21/18 INDICATION FOR CONSULTATION: Preop for cholecystectomy. HISTORY OF PRESENT ILLNESS: The patient is an 88-year-old gentleman well known to me from previous cardiac issues. The patient was admitted to the hospital with right upper quadrant abdominal pain after eating a hamburger. He was also febrile. A CAT scan of his abdomen showed acute cholecystitis and was admitted for evaluation. He was started on antibiotics. In speaking with the patient today, he has minimal abdominal discomfort. He has been afebrile. The patient is potentially scheduled for a cholecystectomy tomorrow morning. The patient does have a history of coronary artery disease. He had coronary artery bypass surgery in May 2011. At that time, he had a MINER to his LAD , a saphenous vein graft to his obtuse marginal and a saphenous vein graft to his PDA. He did have postoperative atrial fibrillation. The patient did have a cardiac catheterization in June 2018. At that time, he had a 90% stenosis to his left main. His LAD was occluded. His right coronary artery is occluded. His left circumflex artery had a proximal 95% stenosis, which was heavily calcified and was deemed to be a high risk intervention and stent placement at that time. The patient's saphenous vein graft to his OM1 was occluded. His saphenous vein graft to his right coronary artery was patent and his MINER to his LAD was patent. The patient was placed on appropriate medications after his cardiac catheterization and the patient has had no further chest pain since adjustments in his medications. PAST MEDICAL HISTORY: Significant for: 1. Obstructive sleep apnea syndrome. 2. Right bundle-branch block. 3. Coronary artery disease. 4. Coronary artery bypass surgery. 5. Esophageal dysphagia. 6. Hyperlipidemia. 7. Melanoma of the skin. 8. Mild renal insufficiency. PAST SURGICAL HISTORY: 1. Coronary artery bypass surgery in 2010. 2. Skin lesion resection in 2011. 3. Tonsillectomy. MEDICATIONS: Outpatient medications: 1. Aspirin 81 mg a day. 2. Isosorbide mononitrate 30 mg twice a day. 3. Eliquis 2.5 mg twice a day. 4. Ramipril 5 mg a day. 5. Crestor 10 mg every day. ALLERGIES: No known drug allergies. FAMILY HISTORY: Not obtained. SOCIAL HISTORY: The patient lives with his . He exercises regularly. He denies tobacco or alcohol use. He is retired. REVIEW OF SYSTEMS: Positive for fevers. Negative in weight change. Positive for nausea and vomiting. Negative for lower extremity edema. Other 12-point review was unremarkable. PHYSICAL EXAMINATION: On physical exam, height is 5 feet 6 inches, weight 175 pounds. Temperature 98.7, heart rate is 85, blood pressure 113/33, oxygen saturation 95% on 2 L, respiratory rate is 20. Sclerae anicteric. Oropharynx is pink without erythema. Carotids are 2+ without bruits. JVD is normal. Thyroid is normal. Cardiac Exam: S1, S2 without any murmurs, rubs, or gallops. PMI is normal. Lungs are clear to auscultation. There is no dullness to percussion. Abdomen has mild tenderness to the right upper quadrant. He has normoactive bowel sounds. Extremities show no edema. He has 2+ pulses throughout. The patient is awake, alert, and oriented. He moves all 4 extremities equally. LABORATORY STUDIES: White count 15.8, hemoglobin 13, hematocrit 40, platelet count 117. Chemistry is within normal limits, BUN 26, creatinine 1.3, which is at his baseline. AST and ALT are normal. Troponin levels, initial troponin level is 0.01, peak troponin level is 0.08. Amylase and lipase were normal. IMAGING: EKG shows normal sinus rhythm with a right bundle-branch block, unchanged from previous EKGs. IMPRESSION: This is an 88-year-old gentleman with a history of coronary artery disease as described above, who is admitted to the hospital with cholecystitis. The patient has been without chest pain for a number of months. He is on appropriate medications. The patient does exercise on a regular basis without any symptoms. The patient does at least 5 METs of exercise without any symptoms. For now my patient recommendation is the patient is to continue on his current medications. The patient has been intolerant of beta-blockers in the past. The patient is on Eliquis for his paroxysmal atrial fibrillation. The patient is in normal sinus rhythm. At this point, Eliquis can be held for the surgery. The patient is at moderately increased risk for cardiovascular complications given his history and status of his coronary artery disease based on his last cardiac catheterization. At this point, I do not think it is appropriate to transfer the patient for a high- risk angioplasty of his left circumflex artery in preparation for his cholecystectomy. The patient will proceed with surgery. I will follow the patient during this hospitalization. [id number]/[facility] #: [id number] ALANNA
[2018-12-22] MEDS: ZOSYN 3.375 GM Q8H per EXTENDED INFUSION IVPB SCH ×6 (02:32→19:49)
[2018-12-22] MEDS ORDERED: Lactated Ringers 1000 ML Bag* 1,000 ML IV SCH (06:00)
[2018-12-22] MEDS ORDERED: Etomidate* 2 MG/ML 10 ML VIAL ONE (07:05)
[2018-12-22] MEDS ORDERED: Rocuronium* 10 MG/ML VIAL ONE (07:05)
[2018-12-22] MEDS ORDERED: fentaNYL* 50 MCG/ML 2 ML VIAL (100 MCG VIAL) ONE (07:05)
[2018-12-22] MEDS ORDERED: Bupivacaine 0.25% W/EPI* 10 ML SDV ONE (07:11)
[2018-12-22] MEDS ORDERED: Phenylephrine 40 MCG/ML SYRINGE ONE (07:57)
[2018-12-22] MEDS ORDERED: Phenylephrine 10 MG/ML VIAL* 1 ML VIAL ONE (07:57)
[2018-12-22] MEDS ORDERED: Sugammadex * 500 MG/5 ML VIAL IV PUSH ONE (09:45)
[2018-12-22] MEDS ORDERED: Ondansetron INJ* 2 MG/ML VIAL ONE (09:54)
--- NOTE | 2018-12-22 10:01 | OP ---
Operative Report - Blank - Operative Report Date of Operation: 12/22/18 Note: Brief Operative Note Preop Dx: Acute calculous cholecystitis Postop Dx: same, gangrenous Procedure: laparoscopic cholecystectomy Anesthesia: GET Surgeon: Cornelio Metal Flow Coordinator: MIESHA Padilla PA-S Fluids: 700 ml RL EBL: 50 ml Specimen: gallbladder Drains: one ALFONSO Findings: dictated
[2018-12-22] MEDS ORDERED: Naloxone* 0.4 MG/ML 1 ML VIAL IV PRN (10:17)
[2018-12-22] MEDS ORDERED: Metoclopramide IV* 5 MG/ML 2 ML VIAL IV PRN (10:17)
[2018-12-22] MEDS ORDERED: fentaNYL* 50 MCG/ML 2 ML VIAL (100 MCG VIAL) IV PRN (10:17)
[2018-12-22] MEDS ORDERED: oxyCODONE TAB* 5 MG TAB PO PRN (10:17)
[2018-12-22] MEDS ORDERED: Acetaminophen TAB* 325 MG PO PRN (10:17)
[2018-12-22] MEDS ORDERED: Morphine INJ* 2 MG/ML 1 ML SYRINGE (TWO MG - NEW SYRINGE VERSION) IV PRN (10:33)
[2018-12-22] MEDS ORDERED: Morphine 4 MG/ML VIAL (1 ml) 4 MG/ML VIAL IV PRN (10:38)
[2018-12-22] MEDS ORDERED: HYDROcodone/ACETAMIN 5-325 MG* 1 TAB PO PRN (10:39)
[2018-12-22] MEDS: Isosorbide Mononitrate ER TAB* 30 MG PO SCH ×2 (10:54→21:11)
[2018-12-22] MEDS: Ramipril CAP* 5 MG PO SCH (10:54)
[2018-12-22] MEDS: Multivitamins/Minerals TAB PO SCH (10:54)
[2018-12-22 12:59] LABS: ABS Lymphocytes 0.5 10^3/ul (1.0-4.8); ABS Monocytes 1.5 10^3/ul (0-0.8); ABS Neutrophils 16.8 10^3/ul (1.5-7.7); Hematocrit 39 % (42-52); Hemoglobin 12.9 g/dL (14.0-18.0); Lymphocyte % 2.8 %; Mean Corpuscular HGB Conc 33 g/dL (31-36); Mean Corpuscular Hemoglobin 31 pg (27-31); Mean Corpuscular Volume 94 fL (80-94); Mean Platelet Volume 10.2 fL (7.4-10.4); Platelet Count 160 10^3/uL (150-450); Red Blood Count 4.12 10^6 /uL (4.18-5.48); Red Cell Distribution Width 13 % (10-15); White Blood Count 18.8 10^3/uL (3.5-10.8)
[2018-12-22 13:08] LABS: Albumin 2.6 g/dL (3.2-5.2); BUN/Creatinine Ratio 16.7 (8-20); Calcium 8.4 mg/dL (8.6-10.3); EGFR African American 36.2 (>60); Globulin 2.6 g/dL (2-4); Potassium 4.8 mmol/L (3.5-5.0); Total Bilirubin 5.9 mg/dL (0.2-1.0); Total Protein 5.2 g/dL (6.4-8.9)
[2018-12-22 15:49] LABS: Indirect Bilirubin 1.5 mg/dL (0.3-1.0)
--- NOTE | 2018-12-22 16:01 | PN ---
Progress Note - Progress Note Date of Service: 12/22/18 Note: S: This is a 88 y/o male s/p laparoscopic cholecystectomy and ALFONSO drain placement earlier today. Patient states he is having some abdominal tenderness, but no pain out of proportion. Patient states Denies nausea, vomiting, diarrhea , fever, chills, chest pain, or SOB. Active medications are as follows: Acetaminophen (Tylenol Tab*) 650 mg PO Q6H PRN PRN Reason: PAIN Last Admin: 12/21/18 03:10 Dose: 650 mg Hydrocodone Bitart/Acetaminophen ([place] 5-325 Tab*) 1 tab PO Q4H PRN PRN Reason: PAIN MODERATE Sodium Chloride (Ns 0.9% 1000 Ml) 1,000 mls @ 75 mls/hr IV PER RATE FORMERLY [facility], [facility] Last Admin: 12/21/18 17:04 Dose: 75 mls/hr Piperacillin Sod/Tazobactam (Sod 3.375 gm/ Sodium Chloride) 100 mls @ 25 mls/ hr IVPB Q8H [facility], [facility] Last Admin: 12/22/18 12:35 Dose: 25 mls/hr Isosorbide Mononitrate (Imdur Er Tab*) 30 mg PO BID [facility], [facility] Last Admin: 12/22/18 10:54 Dose: Not Given Morphine Sulfate (Morphine Inj (Syringe))*) 2 mg IV Q2H PRN PRN Reason: PAIN MODERATE Morphine Sulfate (Morphine 4 Mg/Ml Vial (1 Ml)) 4 mg IV Q2H PRN PRN Reason: PAIN SEVERE Multivitamins/Minerals (Theragran/Minerals Tab*) 1 tab PO QAM FOR[facility], [facility] Last Admin: 12/22/18 10:54 Dose: Not Given Pharmacy Consult (Zosyn Per Pharmacy*) 1 note FOLLOW UP . PRN PRN Reason: PER PROTOCOL Ramipril (Altace Cap*) 5 mg PO QAM [facility], [facility] Last Admin: 12/22/18 10:54 Dose: Not Given Zolpidem Tartrate (Ambien Tab*) 5 mg PO BEDTIME PRN PRN Reason: INSOMNIA Last Admin: 12/21/18 00:49 Dose: 5 mg O: Vital Signs Temp 99.9 F 12/22/18 15:20 Pulse 87 12/22/18 15:20 Resp 18 12/22/18 15:20 BP 127/45 12/22/18 15:20 Pulse Ox 96 07/23/19 15:20 Intake & Output 12/21/18 12/22/18 12/22/18 18:59 06:59 18:59 Intake Total 1217 1080 900 Output Total 575 182 Balance 642 1080 718 Intake: IV Fluids 1017 180 900 ABX - ZOSYN 189 180 LR 900 NS (0.9%) 828 IVPB 900 NS (0.9%) 900 Oral 200 0 0 Output: ALFONSO #1 132 Urine 575 0 Estimated Blood Loss 50 Abnormal Lab Results 12/22/18 12/22/18 12:32 12:33 WBC 18.8 H RBC 4.12 L Hgb 12.9 L Hct 39 L MCV 94 MCH 31 MCHC 33 RDW 13 Plt Count 160 MPV 10.2 Neut % (Auto) 89.1 Lymph % (Auto) 2.8 [place] % (Auto) 8.1 Eos % (Auto) 0.0 Baso % (Auto) 0.0 Absolute Neuts (auto) 16.8 H Absolute Lymphs (auto) 0.5 L Absolute Monos (auto) 1.5 H Absolute Eos (auto) 0.0 Absolute Basos (auto) 0.0 Absolute Nucleated RBC 0.0 Nucleated RBC % 0.0 Sodium 137 Potassium 4.8 Chloride 106 Carbon Dioxide 22 Anion Gap 9 BUN 35 H Creatinine 2.10 H Est GFR ( Amer) 36.2 Est GFR (Non-Af Amer) 30.0 BUN/Creatinine Ratio 16.7 Glucose 151 H Calcium 8.4 L Total Bilirubin 5.90 H D Direct Bilirubin 4.40 H Indirect Bilirubin 1.5 H AST 130 H ALT 94 H Alkaline Phosphatase 496 H Total Protein 5.2 L Albumin 2.6 L Globulin 2.6 Albumin/Globulin Ratio 1.0 General: patient is lying supine comfortably in bed in no acute distress A&O x 3 Cardio: Regular rate and rhythm. Repiratory: Lungs clear to auscultation throughout bilaterally. No rhochi or wheezes Eyes: sclera icteric bilaterally Abdomen/surgical site: dressings still in place. No obvious drainage or saturation of the dressings. ALFONSO drain in place with sanguinous drainage. No leakage around the drain site. No significant tenderness to palpation of the abdomen. Bowel sounds normoactive throughout. A: s/p laparoscopic cholecystectomy and ALFONSO drainage placement today P: patient is doing well continue pain management per nursing staff, patient ate solid food lunch today. Nursing staff stated that Dr. Grimes just placed patient on liquid diet. monitor patient as bilirubin levels are elevated
--- NOTE | 2018-12-22 18:00 | PN ---
<Marco ARoxanne farah - Last Filed: 12/22/18 17:48> Subjective Date of Service: 12/22/18 Interval History: Patient complains of Abdominal pain on the site of his surgery. Patient had his cholecystectomy done today. He doesnot have any other complain. No any fever, nausea or vomiting. Objective Active Medications: Acetaminophen (Tylenol Tab*) 650 mg PO Q6H PRN PRN Reason: PAIN Last Admin: 12/21/18 03:10 Dose: 650 mg Hydrocodone Bitart/Acetaminophen ([place] 5-325 Tab*) 1 tab PO Q4H PRN PRN Reason: PAIN MODERATE Sodium Chloride (Ns 0.9% 1000 Ml) 1,000 mls @ 75 mls/hr IV PER RATE [facility] Last Admin: 12/21/18 17:04 Dose: 75 mls/hr Piperacillin Sod/Tazobactam (Sod 3.375 gm/ Sodium Chloride) 100 mls @ 25 mls/ hr IVPB Q8H [facility] Last Admin: 12/22/18 12:35 Dose: 25 mls/hr Isosorbide Mononitrate (Imdur Er Tab*) 30 mg PO BID [facility] Last Admin: 12/22/18 10:54 Dose: Not Given Morphine Sulfate (Morphine Inj (Syringe))*) 2 mg IV Q2H PRN PRN Reason: PAIN MODERATE Morphine Sulfate (Morphine 4 Mg/Ml Vial (1 Ml)) 4 mg IV Q2H PRN PRN Reason: PAIN SEVERE Multivitamins/Minerals (Theragran/Minerals Tab*) 1 tab PO QAM [facility] Last Admin: 12/22/18 10:54 Dose: Not Given Pharmacy Consult (Zosyn Per Pharmacy*) 1 note FOLLOW UP . PRN PRN Reason: PER PROTOCOL Ramipril (Altace Cap*) 5 mg PO QAM [facility] Last Admin: 12/22/18 10:54 Dose: Not Given Zolpidem Tartrate (Ambien Tab*) 5 mg PO BEDTIME PRN PRN Reason: INSOMNIA Last Admin: 12/21/18 00:49 Dose: 5 mg Vital Signs - 8 hr 12/22/18 12/22/18 12/22/18 10:15 10:18 10:20 Temperature 98.8 F Pulse Rate 75 77 81 Respiratory 29 27 32 Rate Blood Pressure 160/59 160/59 159/62 (mmHg) O2 Sat by Pulse 97 98 97 Oximetry 12/22/18 12/22/18 12/22/18 10:26 10:30 10:45 Temperature Pulse Rate 76 80 82 Respiratory 22 31 29 Rate Blood Pressure 153/61 146/54 142/61 (mmHg) O2 Sat by Pulse 97 95 94 Oximetry 12/22/18 12/22/18 12/22/18 11:32 11:40 12:22 Temperature 98.4 F 98.6 F Pulse Rate 80 81 Respiratory 20 20 16 Rate Blood Pressure 129/42 121/51 (mmHg) O2 Sat by Pulse 96 96 Oximetry 12/22/18 12/22/18 12/22/18 13:24 15:20 16:00 Temperature 100.1 F 99.9 F Pulse Rate 90 87 Respiratory 18 18 Rate Blood Pressure 114/51 127/45 (mmHg) O2 Sat by Pulse 96 96 96 Oximetry Oxygen Devices in Use Now: Nasal Cannula Exam: Patient is lying on bed with nasal canula on his nares. HEENT: Normocephalic, atraumatic. Mild yellowish discoloration of sclera. CVS: Normal heart sound heard Respiratory: Normal vesicular sound GI: There is a dressing wound on his upper abdomen. ALFONSO drain on place draining blood. Abdominal tenderness present. Normal bowel sound heard. Neuro: Alert, Conscious and oriented. Result Diagrams: 12/22/18 12:33 12/22/18 12:32 Diagnostic Imaging: CT Abdomen Pelvis IMPRESSION: 1. Findings of acute cholecystitis. 2. Bosniak type I renal cysts. No followup indicated. 3. Distal colonic diverticulosis. 4. Severe prostatomegaly. EKG Data: EKG shows sinus at 68bpm, RBBB with T-wave inversions. Compared to old EKG from 2016 no significant change. Assess/Plan/Problems-Billing Assessment: 88 y/o M with PMH of CAD(s/p stent and CABG), AF, HTN, HLD, CKD presented with abdominal pain and vomiting. Admitted with diagnosis of Acute Cholecystitis with cholelithiasis s/p Lapraoscopic cholecystectomy. Patient complains of mild abdominal pain. - Patient Problems (1) Cholecystitis, acute with cholelithiasis Current Visit: Yes Status: Acute Code(s): K80.00 - CALCULUS OF GALLBLADDER W ACUTE CHOLECYST W/O OBSTRUCTION SNOMED Code(s): 95606844 Comment: Continue piperacillin/tazobactum(started on 12/21/2018). Cholecystectomy done with placement of ALFONSO drain(12/22/2018). Clear liquid diet. Pain medication(Morphine) given for pain mx. Monitor for pain. F/U with LFT. (2) CAD (coronary artery disease) Current Visit: No Status: Chronic Priority: Medium Code(s): I25.10 - ATHSCL HEART DISEASE OF [place] CORONARY ARTERY W/O ANG PCTRS SNOMED Code(s): 60949685 Comment: History of CAD. No any chest pain or SOB now. Hold Aspirin, statin given acute chitra. Consult regarding when to start aspirin and statin. (3) Atrial fibrillation Current Visit: No Status: Acute Code(s): I48.91 - UNSPECIFIED ATRIAL FIBRILLATION SNOMED Code(s): 36809427 Comment: Nitin put on hold due to his surgery. (4) HTN (hypertension) Current Visit: No Status: Chronic Priority: Medium Code(s): I10 - ESSENTIAL (PRIMARY) HYPERTENSION SNOMED Code(s): 49331913 Comment: Continue ramipril. (5) Chronic kidney disease (CKD) Current Visit: Yes Status: Acute Code(s): N18.9 - CHRONIC KIDNEY DISEASE, UNSPECIFIED SNOMED Code(s): 298405463 Comment: Creatinine is 1.34 and GFR is 50.3. (6) Dyslipidemia Current Visit: No Status: Chronic Priority: Medium Code(s): E78.5 - HYPERLIPIDEMIA, UNSPECIFIED SNOMED Code(s): 584382451 Comment: Statin put on hold. (7) DVT prophylaxis Current Visit: No Status: Acute Priority: Medium Code(s): UFI0618 - SNOMED Code(s): 358516013 Comment: SCDs for now. Nitin put on hold due to his surgery. Status and Disposition: Medicine inpatient. Attending: Estefania Gonzalez <Estefania Gonzalez - Last Filed: 12/22/18 21:28> Objective Active Medications: Acetaminophen (Tylenol Tab*) 650 mg PO Q6H PRN PRN Reason: PAIN Last Admin: 12/21/18 03:10 Dose: 650 mg Hydrocodone Bitart/Acetaminophen ([place] 5-325 Tab*) 1 tab PO Q4H PRN PRN Reason: PAIN MODERATE Sodium Chloride (Ns 0.9% 1000 Ml) 1,000 mls @ 75 mls/hr IV PER RATE [facility] Last Admin: 12/21/18 17:04 Dose: 75 mls/hr Piperacillin Sod/Tazobactam (Sod 3.375 gm/ Sodium Chloride) 100 mls @ 25 mls/ hr IVPB Q8H [facility] Last Admin: 12/22/18 19:49 Dose: 25 mls/hr Isosorbide Mononitrate (Imdur Er Tab*) 30 mg PO BID [facility] Last Admin: 12/22/18 21:11 Dose: 30 mg Morphine Sulfate (Morphine Inj (Syringe))*) 2 mg IV Q2H PRN PRN Reason: PAIN MODERATE Morphine Sulfate (Morphine 4 Mg/Ml Vial (1 Ml)) 4 mg IV Q2H PRN PRN Reason: PAIN SEVERE Multivitamins/Minerals (Theragran/Minerals Tab*) 1 tab PO QAM [facility] Last Admin: 12/22/18 10:54 Dose: Not Given Pharmacy Consult (Zosyn Per Pharmacy*) 1 note FOLLOW UP . PRN PRN Reason: PER PROTOCOL Ramipril (Altace Cap*) 5 mg PO QAM [facility] Last Admin: 12/22/18 10:54 Dose: Not Given Zolpidem Tartrate (Ambien Tab*) 5 mg PO BEDTIME PRN PRN Reason: INSOMNIA Last Admin: 12/21/18 00:49 Dose: 5 mg Vital Signs - 8 hr 12/22/18 12/22/18 12/22/18 13:24 15:20 16:00 Temperature 100.1 F 99.9 F Pulse Rate 90 87 Respiratory 18 18 Rate Blood Pressure 114/51 127/45 (mmHg) O2 Sat by Pulse 96 96 96 Oximetry 12/22/18 12/22/18 19:17 19:55 Temperature 99.8 F Pulse Rate 82 Respiratory 17 17 Rate Blood Pressure 123/50 (mmHg) O2 Sat by Pulse 96 Oximetry Result Diagrams: 12/22/18 12:33 12/22/18 12:32 Assess/Plan/Problems-Billing Went to OR this AM. Now returned and is without complaints. vss elderly man in NAD, appears tired rrr no mgr ctab abd soft, +RUQ tenderness with clean bandage, drain with serosanguineous fluid no LE edema A/P 88M with CAD s/p CABG, HTN, afib on Eliquis, presents with acute abdominal pain and vomiting, found here with fever, leukocytosis, and imaging confirming acute cholecystitis. # Acute cholecystitis. - s/p lap chitra 12/22 now with drain - appreciate surgery recommendations - advance diet at tolerated - cont IV Zosyn # Afib - can resume Eliquis 2 days after surgery if no concern for bleeding - was not on rate control # HTN - cont home ramipril, monitor BP # CAD - hold aspirin, continue statin Attestation Documenting Resident: Dontrell Supervising Physician: Carlos Attestation: This service has been performed in part by a resident under the direction of a teaching physician.ICarlos, performed the service, or was physically present during the critical, or [place] portions of the service, furnished by the resident. I participated in the management of the patient.
--- NOTE | 2018-12-22 19:11 | OP ---
CC: Dr. Kaleigh Dumont; Dr. Madi Phan * DATE OF OPERATION: 12/22/18 - ROOM #333 DATE OF : [birth year] SURGEON: Toribio Grimes MD COIN TELLER: ZENY Gonzalez ANESTHESIOLOGIST: Dr. Mckinnon. ANESTHESIA: General with local. PRE-OP DIAGNOSIS: Acute calculous cholecystitis. POST-OP DIAGNOSIS: Acute gangrenous calculous cholecystitis. OPERATIVE PROCEDURE: Laparoscopic cholecystectomy. ESTIMATED BLOOD LOSS: 50 cc. IV FLUIDS: 1 L of crystalloid. SPECIMENS: Gallbladder. WOUND CLASSIFICATION: IV. COMPLICATIONS: None. DRAINS: #10 ALFONSO drain at the right upper quadrant. FINDINGS: The patient had severe acute gangrenous calculous cholecystitis with gangrene in the majority of the wall of the gallbladder. The liver appeared somewhat darker in color but without evidence of nodularity or cirrhosis. BRIEF HISTORY: Mr. Royal Whitlock is an 88-year-old gentleman with a history of coronary artery disease, who presented to the emergency room with almost 24 hours of severe right upper quadrant abdominal discomfort. He had a mild elevation in his white blood cell count. CT scan of the abdomen and pelvis showed large gallstones within the gallbladder as well as findings consistent with acute calculous cholecystitis. He was started on IV antibiotics. He was on Eliquis and this was held for 48 hours prior to surgery. Cardiology evaluation was performed and he was felt to be an acceptable candidate to proceed with surgery. He is now to undergo an elective laparoscopic cholecystectomy. The procedure was discussed with the patient and his and the risks and benefits were all explained. DESCRIPTION OF PROCEDURE: Written informed consent was obtained, the abdomen was marked with an indelible ink and preoperative antibiotics were administered. The patient was taken to the operating room and placed in the supine position. Sequential compression devices and warming blanket were applied. General anesthesia was administered. The abdomen was prepped and draped in the usual sterile fashion. Time-out verification was completed. A vertical incision was made just above the umbilicus. The peritoneal cavity was entered under direct vision. A 12-mm blunt port was inserted and the abdomen was insufflated to 15 mmHg. Under direct vision, an 11-mm epigastric port was placed and two 5-mm ports were placed in the right side of the abdominal wall. It was evident that there was a significant amount of inflammation in the right upper quadrant. The omentum was adherent to the anterior abdominal wall as well as the liver and this was taken down bluntly to reveal a very markedly dilated and tense gallbladder. The gallbladder wall was gangrenous over most of its visualized surface. The liver was essentially unremarkable but darker in color but without nodularity or cirrhosis. There was no evidence of gallbladder perforation. There was some fibrinous exudate above the liver and laterally and this was irrigated and as much as possible was removed through the larger port. We were unable to grasp the gallbladder due to its thick wall and distention and an 18-gauge needle was passed through the upper right port and about 60 cc of dark green thick bile was aspirated, allowing us to grasp the gallbladder and elevate it up over the liver bed. Using the suction stenotype machine operator, the blunt dissector as well as some hook cautery, I was able to sweep the omentum which was very adherent to the gallbladder down towards the infundibulum of the gallbladder to improve exposure. Using some blunt dissection as well as the hook cautery, I was able to divide the inflamed edematous fat and peritoneum along the medial and lateral aspect of the gallbladder and infundibular area. Doing this, we were able to bring the gallbladder up into view. The cystic duct was carefully identified and I took a considerable portion of the inferior part of the gallbladder off the liver bed using the critical view technique to assure myself of the structure. In addition the cystic artery was identified as it entered the gallbladder and this was doubly clipped and divided once I had completed the critical view technique. The cystic duct was of quite small caliber and it appeared to have no stones within the lumen after milking this up with a [place] dissector. The cystic duct was then triply clipped and divided. There was thickened edematous fat inferior to this in the mesentery of the gallbladder which I reflected downwards, and there appeared to be another vessel within the fatty tissue that descended back towards the liver bed and this was protected from injury throughout. The gallbladder was then removed from the liver bed with some difficulty due to the inflammation and this was done with a combination of the suction stenotype machine operator as well as the hook cautery. Once the gallbladder had been completely removed from the liver bed, it was placed in an EndoCatch bag. The liver bed was then irrigated thoroughly. Hemostasis of the liver bed was achieved with electrocautery, especially in the raw areas. There was no overt arterial bleeding noted. 3 L of saline were used to irrigate the right upper quadrant and the fluid up above the liver. There was also some fibrinous exudate up above the liver, which was also collected as best as possible. Careful evaluation of the left upper quadrant and lower abdomen showed no other abnormalities. The gallbladder was then removed from the supraumbilical incision. It was necessary to enlarge the fascial defect to pull the thickened gallbladder with large gallstones through this. The 12-mm port was reinserted and the abdomen was re-insufflated and a #10 ALFONSO drain was placed in the right upper quadrant and brought up to the stab wound in the right side of the abdominal wall. The drain was sutured to the skin with a 3-0 Prolene suture. All ports removed under direct vision of the camera and there was no abdominal wall bleeding. The supraumbilical fascia was closed with interrupted 0 Vicryl suture. The skin at all 3 incisions was approximated with stapling device. Dry sterile dressings were applied. The patient tolerated the procedure well and was taken to the recovery room in stable condition. [id number]/[facility] #: [id number] ALANNA
[2018-12-23] MEDS: Metoprolol Tartrate IV* 1 MG/ML 5 ML VIAL IV PRN ×2 (01:25→10:07)
--- NOTE | 2018-12-23 01:34 | PN ---
Progress Note - Progress Note Date of Service: 12/23/18 Note: pt got in asymptomatic A. fib with HR in 120's-when sleeping. will tx with IV lopressor and cont to monitor on telem
[2018-12-23] MEDS: NS 0.9% 1000 ML** 1,000 ML IV SCH ×2 (01:39→16:00)
[2018-12-23] MEDS ORDERED: Digoxin IV* 0.5 MG/2 ML AMP (0.25 MG/ML) IV SLOW PU ONE (01:50)
[2018-12-23] MEDS: ZOSYN 3.375 GM Q8H per EXTENDED INFUSION IVPB SCH ×6 (03:01→17:59)
[2018-12-23 06:31] LABS: ABS Lymphocytes 0.4 10^3/ul (1.0-4.8); ABS Monocytes 0.8 10^3/ul (0-0.8); ABS Neutrophils 11.6 10^3/ul (1.5-7.7); Eosinophil % 0.1 %; Hematocrit 36 % (42-52); Hemoglobin 11.8 g/dL (14.0-18.0); Lymphocyte % 3.5 %; Mean Corpuscular HGB Conc 33 g/dL (31-36); Mean Corpuscular Hemoglobin 31 pg (27-31); Mean Corpuscular Volume 93 fL (80-94); Platelet Count 146 10^3/uL (150-450); Red Blood Count 3.81 10^6 /uL (4.18-5.48); Red Cell Distribution Width 13 % (10-15); White Blood Count 12.9 10^3/uL (3.5-10.8)
[2018-12-23 06:53] LABS: Albumin 2.3 g/dL (3.2-5.2); Albumin/Globulin Ratio 0.9 (1-3); BUN/Creatinine Ratio 22.3 (8-20); Calcium 7.7 mg/dL (8.6-10.3); Globulin 2.6 g/dL (2-4); Indirect Bilirubin 1.1 mg/dL (0.3-1.0); Potassium 4.7 mmol/L (3.5-5.0); Total Bilirubin 3.7 mg/dL (0.2-1.0); Total Protein 4.9 g/dL (6.4-8.9)
[2018-12-23] MEDS: Isosorbide Mononitrate ER TAB* 30 MG PO SCH ×2 (08:26→22:41)
[2018-12-23] MEDS: Multivitamins/Minerals TAB PO SCH (08:27)
[2018-12-23] MEDS: Ramipril CAP* 5 MG PO SCH (08:27)
--- NOTE | 2018-12-23 09:15 | PN ---
Progress Note - Progress Note Date of Service: 12/23/18 SOAP: Subjective: He feels well this morning-minimal pain and no N/V, tolerating liquids Has voided several times No SOB or CP Into afib last night-started on metoprolol. Objective: Temp Pulse Resp BP Pulse Ox 98 F 63 20 131/50 91 12/23/18 07:22 12/23/18 07:22 12/23/18 07:22 12/23/18 07:22 12/23/18 07:22 Intake & Output 12/21/18 12/22/18 12/23/18 12/24/18 06:59 06:59 06:59 06:59 Intake Total 200 2297 1335 Output Total 575 727 0 Balance 200 1722 608 0 Weight 175 lb 12.8 oz Intake: IV Fluids 100 1197 900 ABX - ZOSYN 369 LR 900 NS (0.9%) 828 IVPB 100 900 105 ABX - ZOSYN 100 105 NS (0.9%) 900 Oral 0 200 330 Output: ALFONSO #1 177 Urine 575 500 0 Estimated Blood Loss 50 Other: Estimated Void Medium # Bowel Movements 0 PEX: Comfortable in chair-awake and alert Lungs clear with decreased breath sounds at bases Abd is soft and slightly distended. Dressing intact. ALFONSO in place with serosanguinous fluid in bulb Few bowel sounds present Ext without edema Laboratory Results - last 24 hr 12/22/18 12/22/18 12/23/18 12:32 12:33 06:09 WBC 18.8 H RBC 4.12 L Hgb 12.9 L Hct 39 L MCV 94 MCH 31 MCHC 33 RDW 13 Plt Count 160 MPV 10.2 Neut % (Auto) 89.1 Lymph % (Auto) 2.8 [place] % (Auto) 8.1 Eos % (Auto) 0.0 Baso % (Auto) 0.0 Absolute Neuts (auto) 16.8 H Absolute Lymphs (auto) 0.5 L Absolute Monos (auto) 1.5 H Absolute Eos (auto) 0.0 Absolute Basos (auto) 0.0 Absolute Nucleated RBC 0.0 Nucleated RBC % 0.0 Sodium 137 137 Potassium 4.8 4.7 Chloride 106 109 Carbon Dioxide 22 22 Anion Gap 9 6 BUN 35 H 43 H Creatinine 2.10 H 1.93 H Est GFR ( Amer) 36.2 40.0 Est GFR (Non-Af Amer) 30.0 33.0 BUN/Creatinine Ratio 16.7 22.3 H Glucose 151 H 111 H Calcium 8.4 L 7.7 L Total Bilirubin 5.90 H D 3.70 H D Direct Bilirubin 4.40 H 2.60 H Indirect Bilirubin 1.5 H 1.1 H AST 130 H 75 H ALT 94 H 75 H Alkaline Phosphatase 496 H 537 H Total Protein 5.2 L 4.9 L Albumin 2.6 L 2.3 L Globulin 2.6 2.6 Albumin/Globulin Ratio 1.0 0.9 L 12/23/ 06:10 WBC 12.9 H RBC 3.81 L Hgb 11.8 L Hct 36 L MCV 93 MCH 31 MCHC 33 RDW 13 Plt Count 146 L MPV 10.0 Neut % (Auto) 89.9 Lymph % (Auto) 3.5 [place] % (Auto) 6.4 Eos % (Auto) 0.1 Baso % (Auto) 0.1 Absolute Neuts (auto) 11.6 H Absolute Lymphs (auto) 0.4 L Absolute Monos (auto) 0.8 Absolute Eos (auto) 0.0 Absolute Basos (auto) 0.0 Absolute Nucleated RBC 0.0 Nucleated RBC % 0.0 Sodium Potassium Chloride Carbon Dioxide Anion Gap BUN Creatinine Est GFR ( Amer) Est GFR (Non-Af Amer) BUN/Creatinine Ratio Glucose Calcium Total Bilirubin Direct Bilirubin Indirect Bilirubin AST ALT Alkaline Phosphatase Total Protein Albumin Globulin Albumin/Globulin Ratio Assessment: POD# 1 s/p lap choly for acute gangrenous calculous cholecystitis Elevated LFT's-improved today. Could represent CBD stone but with improvement today may be cholestatic in nature secondary to the severe gallbladder inflammation and his associated medical conditions (also had elevation of BUN/CR ). He is afebrile and having minimal pain and no sign of cholangitis and at this point would observe and recheck labs in AM-if elevated will plan GI consult for further work-up and consideration of ERCP, if labs continue to improve, continue present care. Afib Plan: Continue IV abx Full liquids, IVF-continue hydration Increase activity, pulmonary toilet ALFONSO drain Recheck labs in AM Medical management Care discussed with patient and will discuss with today.
--- NOTE | 2018-12-23 15:54 | PN ---
<Roxanne Jon - Last Filed: 12/24/18 06:17> Subjective Date of Service: 12/23/18 Interval History: Patient doesnot have any complain. No any abdominal pain, fever or vomiting. Objective Active Medications: Acetaminophen (Tylenol Tab*) 650 mg PO Q6H PRN PRN Reason: PAIN Last Admin: 12/21/18 03:10 Dose: 650 mg Hydrocodone Bitart/Acetaminophen ([place] 5-325 Tab*) 1 tab PO Q4H PRN PRN Reason: PAIN MODERATE Sodium Chloride (Ns 0.9% 1000 Ml) 1,000 mls @ 75 mls/hr IV PER RATE [facility] Last Admin: 12/23/18 01:39 Dose: 75 mls/hr Piperacillin Sod/Tazobactam (Sod 3.375 gm/ Sodium Chloride) 100 mls @ 25 mls/ hr IVPB Q8H [facility] Last Admin: 12/23/18 10:07 Dose: 25 mls/hr Isosorbide Mononitrate (Imdur Er Tab*) 30 mg PO BID [facility] Last Admin: 12/23/18 08:26 Dose: 30 mg Metoprolol Tartrate (Lopressor Iv*) 5 mg IV Q6H PRN PRN Reason: TACHYCARDIA Last Admin: 12/23/18 10:07 Dose: 5 mg Morphine Sulfate (Morphine Inj (Syringe))*) 2 mg IV Q2H PRN PRN Reason: PAIN MODERATE Morphine Sulfate (Morphine 4 Mg/Ml Vial (1 Ml)) 4 mg IV Q2H PRN PRN Reason: PAIN SEVERE Multivitamins/Minerals (Theragran/Minerals Tab*) 1 tab PO QAM [facility] Last Admin: 12/23/18 08:27 Dose: 1 tab Pharmacy Consult (Zosyn Per Pharmacy*) 1 note FOLLOW UP . PRN PRN Reason: PER PROTOCOL Ramipril (Altace Cap*) 5 mg PO QAM [facility] Last Admin: 12/23/18 08:27 Dose: 5 mg Zolpidem Tartrate (Ambien Tab*) 5 mg PO BEDTIME PRN PRN Reason: INSOMNIA Last Admin: 12/21/18 00:49 Dose: 5 mg Vital Signs - 8 hr 12/23/18 12/23/18 11:55 15:28 Temperature 98.1 F 97.7 F Pulse Rate 81 76 Respiratory 16 18 Rate Blood Pressure 119/44 96/44 (mmHg) O2 Sat by Pulse 92 92 Oximetry Oxygen Devices in Use Now: None Exam: He was sitting on a chair. HEENT: Yellowish discoloration of eyes. Heart: S1/s2 heard. Rhythm was irregular. Lungs: Normal vesicular sound heard. Abdomen: Dressing on upper abdomen with ALFONSO drain draining tea colored fluid. Normal bowel sound heard. Extremities; No any swelling. Pulse intact Neuro: Alert, conscious and oriented. Moving all 4 extremity. Result Diagrams: 12/23/18 06:10 12/23/18 06:09 Diagnostic Imaging: CT Abdomen Pelvis IMPRESSION: 1. Findings of acute cholecystitis. 2. Bosniak type I renal cysts. No followup indicated. 3. Distal colonic diverticulosis. 4. Severe prostatomegaly. EKG Data: EKG shows sinus at 68bpm, RBBB with T-wave inversions. Compared to old EKG from 2016 no significant change. Assess/Plan/Problems-Billing 88 y/o M with PMH of CAD(s/p stent and CABG), AF, HTN, HLD, CKD presented with abdominal pain and vomiting. Admitted with diagnosis of Acute Cholecystitis with cholelithiasis s/p Lapraoscopic cholecystectomy with ALFONSO drain in place. - Patient Problems (1) Cholecystitis, acute with cholelithiasis Current Visit: Yes Status: Acute Code(s): K80.00 - CALCULUS OF GALLBLADDER W ACUTE CHOLECYST W/O OBSTRUCTION SNOMED Code(s): 70957356 Comment: Continue piperacillin/tazobactum(started on 12/21/2018). Cholecystectomy done with placement of ALFONSO drain(12/22/2018). Heart healthy diet. Pain medication(Morphine) given for pain mx. Monitor for pain. F/U with LFT. (2) CAD (coronary artery disease) Current Visit: No Status: Chronic Priority: Medium Code(s): I25.10 - ATHSCL HEART DISEASE OF [place] CORONARY ARTERY W/O ANG PCTRS SNOMED Code(s): 12017423 Comment: History of CAD. No any chest pain or SOB now. Hold Aspirin, statin given acute chitra. Consult regarding when to start aspirin and statin. (3) Atrial fibrillation Current Visit: No Status: Acute Code(s): I48.91 - UNSPECIFIED ATRIAL FIBRILLATION SNOMED Code(s): 74142362 Comment: Nitin put on hold due to his surgery. (4) HTN (hypertension) Current Visit: No Status: Chronic Priority: Medium Code(s): I10 - ESSENTIAL (PRIMARY) HYPERTENSION SNOMED Code(s): 66609181 Comment: Continue ramipril. (5) Chronic kidney disease (CKD) Current Visit: Yes Status: Acute Code(s): N18.9 - CHRONIC KIDNEY DISEASE, UNSPECIFIED SNOMED Code(s): 937075138 Comment: Creatinine is 1.34 and GFR is 50.3. (6) Dyslipidemia Current Visit: No Status: Chronic Priority: Medium Code(s): E78.5 - HYPERLIPIDEMIA, UNSPECIFIED SNOMED Code(s): 130352960 Comment: Statin put on hold. (7) DVT prophylaxis Current Visit: No Status: Acute Priority: Medium Code(s): RTM1396 - SNOMED Code(s): 697133423 Comment: SCDs for now. Nitin put on hold due to his surgery. Status and Disposition: Medicine inpatient. Attending: Estefania Gonzalez <Estefania Gonzalez - Last Filed: 12/24/18 14:27> Objective Active Medications: Acetaminophen (Tylenol Tab*) 650 mg PO Q6H PRN PRN Reason: PAIN Last Admin: 12/21/18 03:10 Dose: 650 mg Hydrocodone Bitart/Acetaminophen ([place] 5-325 Tab*) 1 tab PO Q4H PRN PRN Reason: PAIN MODERATE Apixaban (Eliquis*) 2.5 mg PO BID [facility] Last Admin: 12/24/18 12:33 Dose: 2.5 mg Sodium Chloride (Ns 0.9% 1000 Ml) 1,000 mls @ 120 mls/hr IV PER RATE [facility] Last Admin: 12/24/18 12:28 Dose: 120 mls/hr Isosorbide Mononitrate (Imdur Er Tab*) 30 mg PO BID [facility] Last Admin: 12/24/18 08:34 Dose: 30 mg Magnesium Hydroxide (Milk Of Magnesia Liq*) 30 ml PO Q6H PRN PRN Reason: CONSTIPATION Metoprolol Tartrate (Lopressor Iv*) 5 mg IV Q6H PRN PRN Reason: TACHYCARDIA Morphine Sulfate (Morphine Inj (Syringe))*) 2 mg IV Q2H PRN PRN Reason: PAIN MODERATE Morphine Sulfate (Morphine 4 Mg/Ml Vial (1 Ml)) 4 mg IV Q2H PRN PRN Reason: PAIN SEVERE Multivitamins/Minerals (Theragran/Minerals Tab*) 1 tab PO QAM [facility] Last Admin: 12/24/18 08:34 Dose: 1 tab Ramipril (Altace Cap*) 5 mg PO QAM [facility] Last Admin: 12/24/18 08:34 Dose: 5 mg Senna (Senokot Tab*) 1 tab PO DAILY PRN PRN Reason: CONSTIPATION Last Admin: 12/24/18 09:52 Dose: 1 tab Zolpidem Tartrate (Ambien Tab*) 5 mg PO BEDTIME PRN PRN Reason: INSOMNIA Last Admin: 12/21/18 00:49 Dose: 5 mg Vital Signs - 8 hr 12/24/18 12/24/18 12/24/18 07:19 07:50 08:00 Temperature 98.3 F Pulse Rate 75 Respiratory 23 22 20 Rate Blood Pressure 125/53 (mmHg) O2 Sat by Pulse 92 Oximetry 12/24/18 11:05 Temperature 98 F Pulse Rate 78 Respiratory 11 Rate Blood Pressure 121/50 (mmHg) O2 Sat by Pulse 95 Oximetry Result Diagrams: 12/24/18 04:55 12/24/18 04:55 Assess/Plan/Problems-Billing Had HR 120s overnight with afib, given digoxen and metoprolol with return to NSR with normal rate. Patient asymptomatic. Today reports good appetite, wanting to eat solid foods. vss elderly man in NAD; pleasant and interactive rrr no mgr ctab abd soft, +RUQ tenderness with clean bandage, drain with serosanguineous fluid no LE edema A/P 88M with CAD s/p CABG, HTN, afib on Eliquis, presents with acute abdominal pain and vomiting, found here with fever, leukocytosis, and imaging confirming acute cholecystitis. # Acute cholecystitis. - s/p lap chitra 12/22 now with drain - appreciate surgery recommendations - advance diet to solids - cont IV Zosyn # Afib - can resume Eliquis 2 days after surgery if no concern for bleeding - was not on rate control but will consider starting if pt goes into rapid again - may have not been able to tolerate BB in past due to low HR or BP ( unclear, came in with NSR) # HTN - cont home ramipril, monitor BP # CAD - hold aspirin, holding statin given LFT elevations Attestation Documenting Resident: Dontrell Supervising Physician: Carlos Attestation: This service has been performed in part by a resident under the direction of a teaching physician.ICarlos, performed the service, or was physically present during the critical, or [place] portions of the service, furnished by the resident. I participated in the management of the patient.
[2018-12-23] MEDS ORDERED: NS 0.9% 1000 ML** 1,000 ML IV ONE (18:10)
[2018-12-24] MEDS: ZOSYN 3.375 GM Q8H per EXTENDED INFUSION IVPB SCH ×2 (02:39)
[2018-12-24 05:38] LABS: ABS Eosinophils 0.1 10^3/ul (0-0.6); ABS Lymphocytes 0.7 10^3/ul (1.0-4.8); ABS Monocytes 0.7 10^3/ul (0-0.8); ABS Neutrophils 9.2 10^3/ul (1.5-7.7); Eosinophil % 1.2 %; Hematocrit 34 % (42-52); Hemoglobin 11.7 g/dL (14.0-18.0); Lymphocyte % 6.9 %; Mean Corpuscular HGB Conc 34 g/dL (31-36); Mean Corpuscular Hemoglobin 32 pg (27-31); Mean Corpuscular Volume 93 fL (80-94); Mean Platelet Volume 9.6 fL (7.4-10.4); Platelet Count 137 10^3/uL (150-450); Red Blood Count 3.66 10^6 /uL (4.18-5.48); Red Cell Distribution Width 14 % (10-15); White Blood Count 10.8 10^3/uL (3.5-10.8)
[2018-12-24 05:54] LABS: Albumin 2.3 g/dL (3.2-5.2); Albumin/Globulin Ratio 0.9 (1-3); BUN/Creatinine Ratio 27.6 (8-20); Calcium 7.4 mg/dL (8.6-10.3); EGFR African American 37.7 (>60); EGFR Non-African American 31.1 (>60); Globulin 2.5 g/dL (2-4); Indirect Bilirubin 0.7 mg/dL (0.3-1.0); Potassium 4.2 mmol/L (3.5-5.0); Total Bilirubin 1.9 mg/dL (0.2-1.0); Total Protein 4.8 g/dL (6.4-8.9)
[2018-12-24] MEDS: NS 0.9% 1000 ML** 1,000 ML IV SCH ×3 (06:35→18:11)
[2018-12-24] MEDS: Metoprolol Tartrate IV* 1 MG/ML 5 ML VIAL IV PRN ×2 (08:32→18:22)
[2018-12-24] MEDS: Isosorbide Mononitrate ER TAB* 30 MG PO SCH ×2 (08:34→22:11)
[2018-12-24] MEDS: Multivitamins/Minerals TAB PO SCH (08:34)
[2018-12-24] MEDS: Ramipril CAP* 5 MG PO SCH (08:34)
[2018-12-24] MEDS ORDERED: Senna TAB PO PRN (08:47)
[2018-12-24] MEDS ORDERED: Magnesium Hydroxide LIQ* 30 ML UDC PO PRN (08:47)
[2018-12-24] MEDS ORDERED: NS 0.9% 1000 ML** 1,000 ML IV ONE (08:54)
[2018-12-24] MEDS ORDERED: Amoxicillin/Clavulanate TAB* 500 MG PO SCH (09:30)
--- NOTE | 2018-12-24 10:14 | PN ---
Progress Note - Progress Note Date of Service: 12/24/18 SOAP: Subjective: Feels good this morning Tolerated regular breakfast, taking plenty of liquids po No flatus No pain complaints Objective: Temp Pulse Resp BP Pulse Ox 98.3 F 75 22 125/53 92 12/24/18 07:19 12/24/18 07:19 12/24/18 07:50 12/24/18 07:19 12/24/18 07:19 Intake & Output 12/22/18 12/23/18 12/24/18 12/25/18 06:59 06:59 06:59 06:59 Intake Total 2297 1335 2723 630 Output Total 575 727 680 225 Balance 2458 798 5916 405 Intake: IV Fluids 0162 649 9978 ABX - ZOSYN 369 LR 900 NS (0.9%) 828 1863 IVPB 900 105 ABX - ZOSYN 105 NS (0.9%) 900 Oral 200 330 860 630 Output: ALFONSO #1 177 80 Urine 575 500 600 225 Estimated Blood Loss 50 Other: Estimated Void Medium Medium # Bowel Movements 0 0 # Voids 1 PEX: Comfortable in chair Lungs are clear Abd is soft and slightly distended. Bowel sounds are present. Dressing intact ALFONSO with small amount of serosanguinous drainage in bulb, non-bilious Ext without edema Laboratory Results - last 24 hr 12/24/18 12/24/18 04:55 04:55 WBC 10.8 RBC 3.66 L Hgb 11.7 L Hct 34 L MCV 93 MCH 32 H MCHC 34 RDW 14 Plt Count 137 L MPV 9.6 Neut % (Auto) 85.5 Lymph % (Auto) 6.9 [place] % (Auto) 6.3 Eos % (Auto) 1.2 Baso % (Auto) 0.1 Absolute Neuts (auto) 9.2 H Absolute Lymphs (auto) 0.7 L Absolute Monos (auto) 0.7 Absolute Eos (auto) 0.1 Absolute Basos (auto) 0.0 Absolute Nucleated RBC 0.0 Nucleated RBC % 0.0 Sodium 136 Potassium 4.2 Chloride 108 Carbon Dioxide 22 Anion Gap 6 BUN 56 H Creatinine 2.03 H Est GFR ( Amer) 37.7 Est GFR (Non-Af Amer) 31.1 BUN/Creatinine Ratio 27.6 H Glucose 107 H Calcium 7.4 L Total Bilirubin 1.90 H D Direct Bilirubin 1.20 H Indirect Bilirubin 0.7 AST 46 H ALT 57 H Alkaline Phosphatase 534 H Total Protein 4.8 L Albumin 2.3 L Globulin 2.5 Albumin/Globulin Ratio 0.9 L Assessment: POD# 2 s/p lap choly for acute calculous cholecystits-gangrenous. No fever and normal WBC LFT's trending downwards--continue to follow, suspect cholestatic picture secondary to GB inflammation rather than obstructive cause. No further intervention Afib Elevated BUN/CR--? pre-renal Plan: Continue to encourage po, IVF. Discussed with Dr. Gonzalez, most likely pre-renal and will require more fluids, no sign of CHF or fluid overload ALFONSO drainage-will d/c drain 12/25 Follow renal function OK to stop antibiotics if feel elevated Cr secondary to antibiotics Increase activity, pulmonary toilet Restart Eliquis Care discussed with patient and his at bedside this morning.
[2018-12-24] MEDS ORDERED: Metoprolol Tartrate IV* 1 MG/ML 5 ML VIAL IV PRN (11:35)
[2018-12-24] MEDS: Apixaban* 2.5 MG TAB PO SCH ×2 (12:33→22:11)
--- NOTE | 2018-12-24 15:01 | PN ---
<Roxanne Jon - Last Filed: 12/24/18 15:21> Subjective Date of Service: 12/24/18 Interval History: Patient doesnot have any complain. He did not have bowel movement after surgery but passing flatus. Objective Active Medications: Acetaminophen (Tylenol Tab*) 650 mg PO Q6H PRN PRN Reason: PAIN Last Admin: 12/21/18 03:10 Dose: 650 mg Hydrocodone Bitart/Acetaminophen ([place] 5-325 Tab*) 1 tab PO Q4H PRN PRN Reason: PAIN MODERATE Apixaban (Eliquis*) 2.5 mg PO BID [facility] Last Admin: 12/24/18 12:33 Dose: 2.5 mg Sodium Chloride (Ns 0.9% 1000 Ml) 1,000 mls @ 120 mls/hr IV PER RATE [facility] Last Admin: 12/24/18 12:28 Dose: 120 mls/hr Isosorbide Mononitrate (Imdur Er Tab*) 30 mg PO BID [facility] Last Admin: 12/24/18 08:34 Dose: 30 mg Magnesium Hydroxide (Milk Of [employer] Liq*) 30 ml PO Q6H PRN PRN Reason: CONSTIPATION Metoprolol Succinate (Toprol Xl Tab*) 25 mg PO DAILY [facility] Metoprolol Tartrate (Lopressor Iv*) 5 mg IV Q6H PRN PRN Reason: TACHYCARDIA Morphine Sulfate (Morphine Inj (Syringe))*) 2 mg IV Q2H PRN PRN Reason: PAIN MODERATE Morphine Sulfate (Morphine 4 Mg/Ml Vial (1 Ml)) 4 mg IV Q2H PRN PRN Reason: PAIN SEVERE Multivitamins/Minerals (Theragran/Minerals Tab*) 1 tab PO QAM [facility] Last Admin: 12/24/18 08:34 Dose: 1 tab Ramipril (Altace Cap*) 5 mg PO QAM [facility] Last Admin: 12/24/18 08:34 Dose: 5 mg Senna (Senokot Tab*) 1 tab PO DAILY PRN PRN Reason: CONSTIPATION Last Admin: 12/24/18 09:52 Dose: 1 tab Zolpidem Tartrate (Ambien Tab*) 5 mg PO BEDTIME PRN PRN Reason: INSOMNIA Last Admin: 12/21/18 00:49 Dose: 5 mg Vital Signs - 8 hr 12/24/18 12/24/1812/24/19 07:19 07:50 08:00 Temperature 98.3 F Pulse Rate 75 Respiratory 23 22 20 Rate Blood Pressure 125/53 (mmHg) O2 Sat by Pulse 92 Oximetry 12/24/18 11:05 Temperature 98 F Pulse Rate 78 Respiratory 11 Rate Blood Pressure 121/50 (mmHg) O2 Sat by Pulse 95 Oximetry Oxygen Devices in Use Now: None Exam: He was sitting on a chair. HEENT: anicteric. Heart: S1/s2 heard. Rhythm was irregular. Lungs: Normal vesicular sound heard. Abdomen: Dressing on upper abdomen with ALFONSO drain draining serosanguinous fluid. Normal bowel sound heard. Extremities; No any swelling. Pulse intact Neuro: Alert, conscious and oriented. Moving all 4 extremity. Result Diagrams: 12/24/18 04:55 12/24/18 04:55 Diagnostic Imaging: CT Abdomen Pelvis IMPRESSION: 1. Findings of acute cholecystitis. 2. Bosniak type I renal cysts. No followup indicated. 3. Distal colonic diverticulosis. 4. Severe prostatomegaly. EKG Data: EKG shows sinus at 68bpm, RBBB with T-wave inversions. Compared to old EKG from 2016 no significant change. Assess/Plan/Problems-Billing 88 y/o M with PMH of CAD(s/p stent and CABG), AF, HTN, HLD, CKD presented with abdominal pain and vomiting. Admitted with diagnosis of Acute Cholecystitis with cholelithiasis s/p Lapraoscopic cholecystectomy with ALFONSO drain in place. - Patient Problems (1) Cholecystitis, acute with cholelithiasis Current Visit: Yes Status: Acute Code(s): K80.00 - CALCULUS OF GALLBLADDER W ACUTE CHOLECYST W/O OBSTRUCTION SNOMED Code(s): 10476755 Comment: Cholecystectomy done with placement of ALFONSO drain(12/22/2018). Antibiotic stopped today. Heart healthy diet. Pain medication(Morphine) given for pain mx. Monitor for pain. F/U with LFT. Plan to remove drain tomorrow. (2) CAD (coronary artery disease) Current Visit: No Status: Chronic Priority: Medium Code(s): I25.10 - ATHSCL HEART DISEASE OF [place] CORONARY ARTERY W/O ANG PCTRS SNOMED Code(s): 64941231 Comment: History of CAD. No any chest pain or SOB now. Hold Aspirin, statin given acute chitra. Consult regarding when to start aspirin and statin. (3) Atrial fibrillation Current Visit: No Status: Acute Code(s): I48.91 - UNSPECIFIED ATRIAL FIBRILLATION SNOMED Code(s): 39465146 Comment: Had multiple episodes of AF with HR>120. Fluids given. He is on IV metoprolol prn and oral metoprolol started 25 mg. Eliquis 2.5 mg started BID. (4) HTN (hypertension) Current Visit: No Status: Chronic Priority: Medium Code(s): I10 - ESSENTIAL (PRIMARY) HYPERTENSION SNOMED Code(s): 60145183 Comment: Continue ramipril. (5) Chronic kidney disease (CKD) Current Visit: Yes Status: Acute Code(s): N18.9 - CHRONIC KIDNEY DISEASE, UNSPECIFIED SNOMED Code(s): 374656882 Comment: Creatinine is 1.34 and GFR is 50.3. (6) Dyslipidemia Current Visit: No Status: Chronic Priority: Medium Code(s): E78.5 - HYPERLIPIDEMIA, UNSPECIFIED SNOMED Code(s): 126171544 Comment: Statin put on hold due to his elevated LFT. (7) DVT prophylaxis Current Visit: No Status: Acute Priority: Medium Code(s): ALV0503 - SNOMED Code(s): 969227941 Comment: SCDs for now. Eliquis put on hold due to his surgery. Status and Disposition: Medicine inpatient. Attending: Estefania Gonzalez <Estefania Gonzalez - Last Filed: 12/24/18 16:03> Objective Active Medications: Acetaminophen (Tylenol Tab*) 650 mg PO Q6H PRN PRN Reason: PAIN Last Admin: 12/21/18 03:10 Dose: 650 mg Hydrocodone Bitart/Acetaminophen ([place] 5-325 Tab*) 1 tab PO Q4H PRN PRN Reason: PAIN MODERATE Apixaban (Eliquis*) 2.5 mg PO BID [facility] Last Admin: 12/24/18 12:33 Dose: 2.5 mg Sodium Chloride (Ns 0.9% 1000 Ml) 1,000 mls @ 120 mls/hr IV PER RATE [facility] Last Admin: 12/24/18 12:28 Dose: 120 mls/hr Isosorbide Mononitrate (Imdur Er Tab*) 30 mg PO BID [facility] Last Admin: 12/24/18 08:34 Dose: 30 mg Magnesium Hydroxide (Milk Of Magnesia Liq*) 30 ml PO Q6H PRN PRN Reason: CONSTIPATION Metoprolol Succinate (Toprol Xl Tab*) 25 mg PO DAILY [facility] Last Admin: 12/24/18 15:35 Dose: 25 mg Metoprolol Tartrate (Lopressor Iv*) 5 mg IV Q6H PRN PRN Reason: TACHYCARDIA Morphine Sulfate (Morphine Inj (Syringe))*) 2 mg IV Q2H PRN PRN Reason: PAIN MODERATE Morphine Sulfate (Morphine 4 Mg/Ml Vial (1 Ml)) 4 mg IV Q2H PRN PRN Reason: PAIN SEVERE Multivitamins/Minerals (Theragran/Minerals Tab*) 1 tab PO QAM [facility] Last Admin: 12/24/18 08:34 Dose: 1 tab Ramipril (Altace Cap*) 5 mg PO QAM [facility] Last Admin: 12/24/18 08:34 Dose: 5 mg Senna (Senokot Tab*) 1 tab PO DAILY PRN PRN Reason: CONSTIPATION Last Admin: 12/24/18 09:52 Dose: 1 tab Zolpidem Tartrate (Ambien Tab*) 5 mg PO BEDTIME PRN PRN Reason: INSOMNIA Last Admin: 12/21/18 00:49 Dose: 5 mg Vital Signs - 8 hr 12/24/18 12/24/18 11:05 15:09 Temperature 98 F 97.7 F Pulse Rate 78 81 Respiratory 11 18 Rate Blood Pressure 121/50 143/59 (mmHg) O2 Sat by Pulse 95 100 Oximetry Result Diagrams: 12/24/18 04:55 12/24/18 04:55 Assess/Plan/Problems-Billing Tachycardia again overnight with afib - still possibly with sympathetic nervous system stimulation post-op, combined with dehydration. Given improvement in BP, will start beta-timbo today. Also noted to have BUN increase - will give more IVF and continue to monitor. Tolerated solid foods well yesterday. Feels back to his baseline. Denies abd pain. Was walking around today. vss elderly man in NAD; pleasant and interactive tongue dry rrr no mgr ctab abd soft, +RUQ tenderness with clean bandage, drain with serosanguineous fluid no LE edema A/P 88M with CAD s/p CABG, HTN, afib on Eliquis, presents with acute abdominal pain and vomiting, found here with fever, leukocytosis, and imaging confirming acute cholecystitis. # Acute cholecystitis. - s/p lap chitra 12/22 now with drain, to be removed tomorrow - appreciate surgery recommendations - can DC antibiotics # Afib - will resume Eliquis today - was not on rate control previously but, given intermittent afib with elevated HR, will start beta timbo today # HTN - cont home ramipril, monitor BP # CAD - hold aspirin, holding statin given LFT elevations Attestation Documenting Resident: Dontrell Supervising Physician: Carlos Attestation: This service has been performed in part by a resident under the direction of a teaching physician.ICarlos, performed the service, or was physically present during the critical, or [place] portions of the service, furnished by the resident. I participated in the management of the patient.
[2018-12-24] MEDS: Metoprolol Succinate XL TAB* 25 MG PO SCH (15:35)
[2018-12-24] MEDS ORDERED: Digoxin IV* 0.5 MG/2 ML AMP (0.25 MG/ML) IV SLOW PU ONE (23:30)
[2018-12-25] MEDS: NS 0.9% 1000 ML** 1,000 ML IV SCH (06:27)
[2018-12-25 07:03] LABS: Albumin 2.2 g/dL (3.2-5.2); Albumin/Globulin Ratio 0.9 (1-3); BUN/Creatinine Ratio 28.8 (8-20); Calcium 7.4 mg/dL (8.6-10.3); EGFR African American 58.4 (>60); EGFR Non-African American 48.2 (>60); Globulin 2.5 g/dL (2-4); Indirect Bilirubin 0.5 mg/dL (0.3-1.0); Potassium 4.4 mmol/L (3.5-5.0); Total Bilirubin 1.3 mg/dL (0.2-1.0); Total Protein 4.7 g/dL (6.4-8.9)
[2018-12-25] MEDS: Isosorbide Mononitrate ER TAB* 30 MG PO SCH (08:50)
[2018-12-25] MEDS: Apixaban* 2.5 MG TAB PO SCH (08:50)
[2018-12-25] MEDS: Metoprolol Succinate XL TAB* 25 MG PO SCH (08:50)
[2018-12-25] MEDS: Ramipril CAP* 5 MG PO SCH (08:51)
[2018-12-25] MEDS: Metoprolol Tartrate IV* 1 MG/ML 5 ML VIAL IV PRN (08:51)
[2018-12-25] MEDS: Multivitamins/Minerals TAB PO SCH (08:51)
[2018-12-25] MEDS ORDERED: Metoprolol Tartrate TAB* 25 MG PO SCH (09:00)
[2018-12-25 11:31] VITALS: BP 130/55
--- NOTE | 2018-12-25 12:02 | PN ---
<RayoKarol - Last Filed: 12/25/18 11:46> Progress Note - Progress Note Date of Service: 12/25/18 Note: S: Patient seen with ZENY Sagastume. This is an 88 y/o male s/p lap choly for acute calculous cholecystitis, gangrenous. Patient is improving. Bowel movement this morning. Has been walking and moving from bed to chair without pain or difficulty. Currently patient is in no pain and has not been requiring pain medication. No longer on abx. No fever, chills, chest pain, SOB, nausea, vomiting. Active medications are as follows: Acetaminophen (Tylenol Tab*) 650 mg PO Q6H PRN PRN Reason: PAIN Last Admin: 12/21/18 03:10 Dose: 650 mg Hydrocodone Bitart/Acetaminophen ([place] 5-325 Tab*) 1 tab PO Q4H PRN PRN Reason: PAIN MODERATE Apixaban (Eliquis*) 2.5 mg PO BID [facility] Last Admin: 12/25/18 08:50 Dose: 2.5 mg Sodium Chloride (Ns 0.9% 1000 Ml) 1,000 mls @ 120 mls/hr IV PER RATE [facility] Last Admin: 12/25/18 06:27 Dose: 120 mls/hr Isosorbide Mononitrate (Imdur Er Tab*) 30 mg PO BID [facility] Last Admin: 12/25/18 08:50 Dose: 30 mg Magnesium Hydroxide (Milk Of Magnesia Liq*) 30 ml PO Q6H PRN PRN Reason: CONSTIPATION Metoprolol Tartrate (Lopressor Iv*) 5 mg IV Q6H PRN PRN Reason: TACHYCARDIA Last Admin: 12/25/18 08:51 Dose: 5 mg Metoprolol Tartrate (Lopressor Tab*) 25 mg PO BID [facility] Last Admin: 12/25/18 09:54 Dose: Not Given Morphine Sulfate (Morphine Inj (Syringe))*) 2 mg IV Q2H PRN PRN Reason: PAIN MODERATE Morphine Sulfate (Morphine 4 Mg/Ml Vial (1 Ml)) 4 mg IV Q2H PRN PRN Reason: PAIN SEVERE Multivitamins/Minerals (Theragran/Minerals Tab*) 1 tab PO QAM [facility] Last Admin: 12/25/18 08:51 Dose: 1 tab Ramipril (Altace Cap*) 5 mg PO QAM [facility] Last Admin: 12/25/18 08:51 Dose: 5 mg Senna (Senokot Tab*) 1 tab PO DAILY PRN PRN Reason: CONSTIPATION Last Admin: 12/24/18 09:52 Dose: 1 tab Zolpidem Tartrate (Ambien Tab*) 5 mg PO BEDTIME PRN PRN Reason: INSOMNIA Last Admin: 12/21/18 00:49 Dose: 5 mg O: Vital Signs Temp 98.3 F 12/25/18 11:28 Pulse 56 12/25/18 11:28 Resp 18 12/25/18 11:28 BP 130/55 12/25/18 11:28 Pulse Ox 98 12/25/18 11:28 Intake & Output 12/24/18 12/25/18 12/25/18 18:59 06:59 18:59 Intake Total 2720 750 Output Total 780 640 300 Balance 1940 110 -300 Intake: IV Fluids 1940 NS (0.9%) 1940 Oral 780 750 Output: ALFONSO #1 30 60 Urine 750 580 300 Other: Estimated Void Small # Bowel Movements 1 Estimated Stool Amount Small # Voids 1 General: sitting comfortably in chair. A&O x 3 Cardio: regular rate and rhythm Respiratory: clear to auscultation throughout bilaterally Eyes: sclerae are nonicteric Abdomen/surgical site: royce are in place. ALFONSO drain in place without leakage. Bulb with serosanguinous fluid. Bowel sounds active throughout all four quadrants. No tenderness to palpation. ALFONSO drain was removed without complication or difficulty. A: POD #3 s/p lap choly for acute calculous cholycystitis, gangrenous. Patient had first bowel movement this morning. No fever. Yesterday, [id number], WBC normal and LFTs and bilirubin levels were downtrending. Patient is improving clinically and no longer has the scleral icterus. Per Dr. Grimes's note yesterday, this clinical picture supports idea that previous rise in LFTs and bilirubin levels was due to cholestatic picture secondary to GB inflammation rather than obstructive cause. P: from a surgical standpoint the patient is ready for discharge and follow up with surgical associates in office next week patient voices readiness to go home while in hosp, continue regular ambulation, pulmonary toilet, PO and IVF ALFONSO d/c today [id number] hospitalist service continue to manage patient and decide whether patient is ready for discharge from their service as well discussed with patient, voiced understanding <Tomas Padilla - Last Filed: 12/25/18 12:06> Progress Note - Progress Note Note: Patient seen with PA student, Karol Rayo. I agree with her findings, assessment and plan. Patient also seen earlier by Dr. Grimes.
--- NOTE | 2018-12-25 13:43 | PN ---
Progress Note - Progress Note Date of Service: 12/25/18 SOAP: Subjective: Continues to feel better Tolerating po Had BM yesterday and this morning Objective: Temp Pulse Resp BP Pulse Ox 98.3 F 56 18 130/55 98 12/25/18 11:28 12/25/18 11:28 12/25/18 11:28 12/25/18 11:28 12/25/18 11:28 Intake & Output 12/23/18 12/24/18 12/25/18 12/26/18 06:59 06:59 06:59 06:59 Intake Total 1335 2723 3470 Output Total 056 429 3696 300 Balance 608 2043 2050 -300 Intake: IV Fluids 900 1862 1939 LR 900 NS (0.9%) 1862 1939 IVPB 105 ABX - ZOSYN 105 Oral 398 202 8591 Output: ALFONSO #1 177 80 90 Urine 865 909 2455 300 Estimated Blood Loss 50 Other: Estimated Void Medium Small # Bowel Movements 0 0 1 Estimated Stool Amount Small # Voids 1 PEX: Comfortable Lungs are clear Abd is soft and non-distended. Incisions CDI ALFONSO with small amount of serous fluid in bulb Laboratory Results - last 24 hr 12/25/18 06:32 Sodium 139 Potassium 4.4 Chloride 113 H Carbon Dioxide 22 Anion Gap 4 BUN 40 H Creatinine 1.39 H Est GFR ( Amer) 58.4 Est GFR (Non-Af Amer) 48.2 BUN/Creatinine Ratio 28.8 H Glucose 100 Calcium 7.4 L Total Bilirubin 1.30 H Direct Bilirubin 0.80 H Indirect Bilirubin 0.5 AST 48 H ALT 49 Alkaline Phosphatase 660 H Total Protein 4.7 L Albumin 2.2 L Globulin 2.5 Albumin/Globulin Ratio 0.9 L Assessment: S/P lap choly for acute calculous cholecytitis LFT's improving Plan: Regular diet Of antibiotics D/C ALFONSO drain today OK for d/c from surgical standpoint.
--- NOTE | 2018-12-25 19:45 | DS ---
Resident Discharge Summary Discharge Summary: Date of Admission: 12/20/18 Date of Discharge: 12/25/18 Admitting MD: Natanael Vega MD Attending MD: Estefania Gonzalez MD Primary Care Physician: Kaleigh Dumont MD Multivitamins/Minerals TAB* [Theragran/minerals TAB*] 1 tab PO QAM 06/24/13 [ History Confirmed 12/20/18] Ramipril CAP* [Altace CAP*] 5 mg PO QAM 06/24/13 [History Confirmed 12/20/18] Apixaban* [Eliquis*] 2.5 mg PO BID 05/01/15 [History Confirmed 12/20/18] Aspirin EC TAB* [Ecotrin EC Low Dose 81 MG*] 81 mg PO QAM 05/01/15 [History Confirmed 12/20/18] [place]-3 Fatty Acids (Nf) [Fish Oil (NF)] 1,000 mg PO QAM 05/01/15 [History Confirmed 12/20/18] Rosuvastatin (NF) [Crestor (NF)] 10 mg PO QAM 05/01/15 [History Confirmed ] Isosorbide Mononitrate 30 mg IV BID 12/20/18 [History Confirmed 12/20/18] Metoprolol Tartrate TAB* [Lopressor TAB*] 25 mg PO BID #60 tab 12/25/18 [Rx] Disposition: Home Condition: Improved Primary Diagnosis: 1. Acute calculous cholecystitis s/p laparoscopic cholecystectomy(12/22/18) 2. Atrial fibrillation 3. Acute Kidney Injury Secondary Diagnosis: 1. Hypertension Diagnostic Imaging: Abdomen/CT Pelvis: Acute Cholecystitis, Dandre niak type 1 renal cyst, Distal colonic diverticulosis, Severe prostatomegaly. Pertinent Laboratory Results: ADMISSION DISCHARGE WBC: 11.2 10.8 CREATININE: 2.10 1.39 TOTAL BILIRUBIN: 5.9 1.3 DIRECT BILIRUBIN: 4.4 0.80 TROPONIN: 0.08, decreasing trend Hospital Course: Mr. Whitlock is an 88-year-old gentleman with CAD s/p CABG/stent, here due to vomiting and abdominal pain. Patient stated he started having vomiting 1PM after he had hamburger. Total 4 times of vomiting didn't notice any blood, but vomiting just had the hamburger which was red as it was medium rare. This vomiting was accompanied by abdominal discomfort and he couldn't rest so went to urgent care who sent him to the ER. Discomfort felt like someone punched him it was localized to the bilateral upper abdomen and was constant without any alleviating or aggravating factor. No fever. No diarrhea or constipation. Had two BM today which were normal. No chest pain, no shortness of breath no palpitation. In ER, patient had abdominal imaging concerning for acute cholecystitis, so he was admitted to medicine and started on Zosyn IV. Overnight, he developed fever and leukocytosis. He was also noted to have JENNIFER, thought to be from poor PO and severe sepsis, which improved over the course of hospitalization with IVF. He was kept NPO for laparoscopic cholecystectomy, which occurred without complications on 12/22. He was noted to have a necrotic gall bladder and had surgical drain placed, but tolerated the procedure well. His IV antibiotics were continued for 48 hours after surgery, with no return of fever, so this was discontinued per surgery recommendations. Pt denied abdominal pain after surgery and had good appetite. His Eliquis was resumed 2 days after operation. Of note, he had episodes of afib after surgery, with rates increasing to 130s. This was well-controlled with metoprolol IV. Given his [id number] BP, he was started on metoprolol tartrate with good effect. On day of admission, his surgical drain was removed. He denies abdominal pain, fever, chills, nausea, vomiting, or diarrhea. Follow Up Instructions: Follow up with Dr. Indra Rose in 1-2 weeks. Follow up with Madi Alfaro in 4-7 days Follow up with Dr. Cornelio Rooney in 1-2 weeks. Please note: - New medicine added was metoprolol tartarate 25 mg BID. In case of an emergency or after clinic hours, please go to your nearest Emergency Department. You may also call the [facility] extrusion press operator at .
== END 2018-12-25 15:44 | disposition home health service (06) | DRG 418 ==
LOC: ED 16:22 → MEDTELE 22:18 → SSU 12-22 11:07
PROVIDERS: ADMIT Internal Medicine; ATTEND Internal Medicine
PROC: 0FT44ZZ Resection of Gallbladder, Percutaneous Endoscopic Approach (ICD-10-PCS; principal; 2018-12-22 07:30)
DX: K80.00 Calculus of gallbladder with acute cholecystitis without obstruction (principal); N17.9 Acute kidney failure, unspecified; I48.91 Unspecified atrial fibrillation; N28.1 Cyst of kidney, acquired; K57.30 Diverticulosis of large intestine without perforation or abscess without bleeding; N40.0 Benign prostatic hyperplasia without lower urinary tract symptoms; I25.10 Atherosclerotic heart disease of native coronary artery without angina pectoris; E78.5 Hyperlipidemia, unspecified; M10.9 Gout, unspecified; Z96.651 Presence of right artificial knee joint; R09.02 Hypoxemia; M17.12 Unilateral primary osteoarthritis, left knee; I45.10 Unspecified right bundle-branch block; N18.3 Chronic kidney disease, stage 3 (moderate); I12.9 Hypertensive chronic kidney disease with stage 1 through stage 4 chronic kidney disease, or unspecified chronic kidney disease; G47.33 Obstructive sleep apnea (adult) (pediatric); H91.90 Unspecified hearing loss, unspecified ear; M19.042 Primary osteoarthritis, left hand; M19.041 Primary osteoarthritis, right hand; Z79.82 Long term (current) use of aspirin; Z79.01 Long term (current) use of anticoagulants; Z95.1 Presence of aortocoronary bypass graft; Z95.5 Presence of coronary angioplasty implant and graft; Z85.828 Personal history of other malignant neoplasm of skin; Z97.4 Presence of external hearing-aid; Z85.820 Personal history of malignant melanoma of skin
CPT/HCPCS: 36415; 74177; 80048; 80053; 80076; 81003; 81015; 82248; 83605; 83690; 83735; 84484; 85025; 85610; 85730; 86140; 87040; 87086; 88304; 93005; 99284; A9270-GY; J1160; J2270; J2405; J2543; J3010; J3490; Q9967